=== PATIENT | male | born 1955 | race Caucasian/White ===

== ENCOUNTER 2016-09-18 17:17 | Inpatient (IN) | payer OTHER ==
--- NOTE | ~2016-09-18 | HP ---
Unit #: [id number] #: [id number] Patient: SUNI GIORDANO [id number] [place] [address] [id number] I MR#: [id number] NAME: SUNI GIORDANO. ROOM: P256 Age: 61 Sex: M Admission Date: 09/18/2016 : 1955 Attending Physician: Luis Bernabe M.D. Admitting Physician: Luis Bernabe M.D. Primary Care Physician: Generic Doctor Not In System HISTORY AND PHYSICAL HISTORY OF PRESENT ILLNESS Suni is a 61-year-old male admitted on 09/18/2016, to [address] [place] [address] for detox from alcohol. He recently had a relapse that has been affecting his life. PAST MEDICAL HISTORY Obesity, asthma and seasonal allergies. PAST SURGICAL HISTORY None. SOCIAL HISTORY Smokes less than a pack of cigarettes daily. Binge use of alcohol. No illegal drug use. He is currently single and living in a senior care house. FAMILY HISTORY Noncontributory. REVIEW OF SYSTEMS CONSTITUTIONAL: No fever or chills. HEENT: Denies any sore throat, ear pain or runny nose. CARDIOVASCULAR: Denies chest pain, irregular heart rhythm or palpitations. CHEST: Denies shortness of breath or cough. No hemoptysis. GASTROINTESTINAL: Denies nausea, vomiting, diarrhea or chronic constipation. ENDOCRINE: Denies history of increased thirst or urination. No recent significant weight loss or gain. GENITOURINARY: Denies dysuria, frequency, or hematuria. SKIN: Denies any rashes. HEMATOLOGIC: Denies history of increased bleeding or bruising. MUSCULOSKELETAL: Denies any hot, swollen joints. No generalized muscle pain. NEUROLOGIC: Denies problems with vision or speech. No frequent, severe headaches. No numbness, tingling or weakness in any extremities. Denies loss of bladder or bowel control. CURRENT MEDICATIONS Claritin. ALLERIGES No known drug allergies. PHYSICAL EXAMINATION Unit #: [id number] #: [id number] Patient: SUNI GIORDANO GENERAL: Alert and oriented in no acute distress. VITAL SIGNS: Blood pressure 154/93, heart rate 97, temperature 98.2, respirations 20. HEIGHT: 6 feet 0. WEIGHT: 257 pounds. SKIN: Warm and dry without rash or lesion. HEENT: Normocephalic. TMs not viewed. Oral and nasal passages clear. Conjunctivae clear. PERRLA. EOMs intact. NECK: Supple without lymphadenopathy or thyromegaly. HEART: Regular rate and rhythm without murmur. LUNGS: Clear. ABDOMEN: Soft, nontender, without masses or hepatosplenomegaly. : Not done. EXTREMITIES: No evidence of cyanosis, clubbing or edema. Moves all without focal deficit. NEUROLOGICAL: Grossly within normal limits. Cranial Nerves: II: Visual starr are intact. III, IV AND : Extraocular movements are intact. Pupils are equal, round and reactive to light. V: Facial sensation is grossly normal. VII: Facial movements and expression are normal. VIII: Auditory acuity grossly intact. IX, X: Uvula is midline. Phonation is normal. XI: Patient shrugs shoulders and turns head normally. XII: Tongue protrudes in the midline. Sensory and Motor Function: Sensory and motor sensation is grossly normal. Motor: moves all extremities well. Coordination: Gait is normal. Deep Tendon Reflexes: Intact. MEDICAL ASSESSMENT AND PLAN 1. Psychiatric admission 2. Obesity 3. Seasonal allergies 4. Asthma RECOMMENDATIONS 1. Psychiatric, per psychiatrist. 2. Medical, no contraindications to participating in facility's activities. MEDICAL PROGNOSIS Good. MEDICAL CONDITION Stable. Dictated by... Fawad Bolden/elmira TD: 09/19/2016 15:43 JOB #: [id number] Unit #: [id number] #: [id number] Patient: SUNI GIORDANO HISTORY AND PHYSICAL Page 1 of 1 X IRINA SANCHEZ APRN HISTORY AND PHYSICAL
--- NOTE | ~2016-09-18 | PA ---
Unit #: [id number] #: [id number] Patient: SUNI CHEN [id number] [facility] [address] [place] [address] [id number] I MR#: [id number] NAME: SUNI CHEN. ROOM: P256 Age: 61 Sex: M Admission Date: 09/18/2016 : 1955 Date of Assessment: Attending Physician: Luis Bernabe M.D. Admitting Physician: Luis Bernabe M.D. PSYCHIATRIC ASSESSMENT INFORMANT The patient reliability, fair; chart reliability, good. CHIEF COMPLAINT Detox. HISTORY OF PRESENT ILLNESS Mr. Suni Chen is a 61-year-old male, seen on 2-O[facility]ys with the above-mentioned complaint. The patient was a resident of [facility] in 2012. The patient presented for alcohol detox. The patient reports, the last time of sobriety approximately 5 weeks ago. The patient denied any suicidal or homicidal ideation. Denied any psychotic symptom. Reported history of alcohol use, sobriety almost 4 years. The patient reported unaware of the triggers. The patient reported drinking a fifth of 100 proof alcohol per day. The patient believes that he will if he does not start drinking. The patient needing help. The patient has no history of any medical condition, no history of any other substance abuse and reported tobacco, age of onset 17; alcohol, age of onset 20, sobriety 3-1/2 years, last period of sobriety was in 07/2016. The patient reported history of blackouts. No history of any HIV, hepatitis, or IV drug use. History of withdrawal symptoms. The patient reported poor concentration, poor appetite, nervousness, headache, abdominal cramping, tremors, needing inpatient admission at this time for psychiatric stabilization. PAST PSYCHIATRIC HISTORY Unremarkable for any history of previous treatment. FAMILY HISTORY AND SOCIAL HISTORY Poor support system. No history of any abuse. MEDICAL HISTORY Unremarkable. MEDICATION HISTORY None. ALLERGIES No known drug allergies. SUBSTANCE ABUSE HISTORY Please see above. Unit #: [id number] #: [id number] Patient: SUNI CHEN REVIEW OF SYSTEMS HEENT: Eyes, clear. Ears, nose, mouth, and throat; clear. CARDIOVASCULAR: Unremarkable. RESPIRATORY: Unremarkable. GI: Unremarkable. : Unremarkable. SKIN: Unremarkable. LYMPH NODE: Unremarkable. NEUROLOGIC: Unremarkable. ENDOCRINE: Unremarkable. HEMATOLOGIC: Unremarkable. ALLERGIC/IMMUNOLOGIC: Unremarkable. MUSCULOSKELETAL: Muscle strength and tone, no atrophy or abnormal movement. Gait normal. MENTAL STATUS EXAMINATION CONSTITUTIONAL: Measurement of vital signs; temperature is 98.2, pulse 97, respirations 20, blood pressure 154/93, height 6 feet, and weight 257 pounds. GENERAL APPEARANCE: The patient dressed casually. The patient did not show any facial deformity. MUSCULOSKELETAL: Please see above. PSYCHIATRIC EXAMINATION Description of speech; regular rate, normal volume, normal articulation, coherent. Description of thought process, goal directed. Description of association, intact. Description of abnormal psychotic thinking; the patient denied any thoughts of harming self or others, but guarded. Denied any suicidal or homicidal ideation, substance abuse. Description of the patient's judgment, concerning everyday activity, poor. Social situation, poor. Concerning psychiatric condition, poor. Complete mental status examination; oriented in time, place, and person. Recent and remote memory, fair. Attention span and concentration, fair. Language, able to name object and repeat phrases. Fund of knowledge, aware of current event, passive vocabulary intact. Mood and affect, sad and dysphoric. Insight and judgment, fair to poor. ASSETS AND LIABILITIES Assets; the patient is articulate and able to take care of his ADL. Liability; history of substance abuse. ADMITTING DIAGNOSES Psychiatric: Alcohol use disorder, severe, F10.20; mood disorder, not otherwise specified, F32.9. Secondary diagnosis: Deferred. Medical diagnosis: None. Stressors: Psychosocial stressors. PSYCHIATRIC PLAN AND TREATMENT GOAL AND DISCHARGE PLAN 1. Advised to admit the patient on the inpatient unit. Provide safe, supportive, and structured environment. 2. Ordered labs; CBC, CMP, UA, and UDS. 3. Precaution for detox protocol and detox monitoring. If needed, consider further adjustment of medication. The patient to attend all the Unit #: [id number] #: [id number] Patient: SUNI CHEN programing on the inpatient unit with group therapy, individual therapy. 4. Treatment goal; to attain euthymic mood, gain insight into his problem, and learn coping skills. 5. Discharge plan; plan to stabilize the patient and consider followup in outpatient program. ESTIMATED LENGTH OF STAY 3 to 5 days. Dictated by... Miriam Ludwig/nemo TD: 09/19/2016 11:24 JOB #: [id number] PSYCHIATRIC ASSESSMENT Page 1 of 1 X Luis Bernabe MD PSYCHIATRIC ASSESSMENT
--- NOTE | ~2016-09-18 | CO ---
Unit #: [id number] #: [id number] Patient: SUNI GIORDANO [id number] [facility] [address] [place] [address] [id number] I MR#: [id number] NAME: SUNI GIORDANO. ROOM: P256 Age: 61 Sex: M Admission Date: 09/18/2016 : 1955 Attending Physician: Luis Bernabe M.D. Primary Care Physician: Generic Doctor Not In System Consultation Date: 09/19/2016 CONSULTATION REPORT HISTORY OF PRESENT ILLNESS Suni has fallen since he has been here and he reports that he has falls often. The staff and Dr. Bernabe has some concerns about his mental status. He appears to occasionally have acute mental status changes he may need to detox in a more acute medical facility. During the evaluation, he was able to answer questions appropriately. He reports that he does fall occasionally and he is not sure what causes to fall. He does have some pain in his knees. He is aware of where he is and why he is here and can discussion his medical history without any problems. PHYSICAL EXAMINATION CARDIAC: Regular rate and rhythm. No murmurs, gallops, or rubs. RESPIRATORY: Clear to auscultation bilaterally. GENERAL: Alert and oriented, no acute distress. ASSESSMENT AND PLAN Mental status changes. At this time, Suni does not appear to have any mental status changes and therefore . If he does have any repeat episodes of falling or acute changes in mental status, please return to the ER. Also please keep him on a one-to-one and ensure that he remains in the wheelchair. Dictated by... Fawad Bolden/nemo TD: 10/01/2016 01:05 JOB #: [id number] CONSULTATION REPORT Page 1 of 1 X IRINA SANCHEZ APRN CONSULTATION REPORT
--- NOTE | ~2016-09-18 | DS ---
Unit #: [id number] #: [id number] Patient: SUNI GIORDANO [id number] [facility] [address] [place] [address] [id number] I MR#: [id number] NAME: SUNI GIORDANO. ROOM: [facility] Age: 61 Sex: M Admission Date: 09/18/2016 : 1955 Discharge Date: 09/20/2016 Attending Physician: Luis Bernabe M.D. Primary Care Physician: Generic Doctor Not In System DISCHARGE SUMMARY REASON FOR ADMISSION Alcohol withdrawal. DIAGNOSTIC STUDIES LABORATORY RESULTS: Remarkable for glucose 114. Urine drug screen positive for benzodiazepine. HOSPITAL COURSE The patient was admitted to inpatient unit on 2-Odalys. The patient was very unsteady, shaky, nervous, anxious, having bad cough. The patient was subsequently evaluated and decided to send the patient to [facility] for psychiatric stabilization. The patient's vitals were temperature 98.2, pulse 98, respirations 16, and blood pressure 184/92. The patient was subsequently accepted for further inpatient care and discharged. DISCHARGE MEDICATIONS None. DISCHARGE DIAGNOSES Psychiatric: 1. Alcohol use disorder, severe, F10.20. 2. Mood disorder, not otherwise specified, F32.9. Secondary diagnosis: Deferred. Medical diagnosis: Please refer to H and P. Stressors: Psychosocial stressors. DISCHARGE INSTRUCTIONS The patient is to follow up at [facility] for medical stabilization. CONDITION ON DISCHARGE The patient was restless and anxious at the time of discharge. PROGNOSIS Guarded. DIET AND ACTIVITY As tolerated. Unit #: [id number] #: [id number] Patient: SUNI GIORDANO Dictated by... Miriam Ludwig/nemo TD: 09/20/2016 17:48 JOB #: [id number] DISCHARGE SUMMARY Page 1 of 1 X Luis Bernabe MD X DISCHARGE SUMMARY
[2016-09-20] MEDS ORDERED: THIAMINE HCL100 M2 IM (04:50)
[2016-09-20] MEDS ORDERED: THIAMINE HCL100 M1 PO (04:50)
[2016-09-20] MEDS ORDERED: THIAMINE H100 MG/1 M IM (04:51)
[2016-09-20] MEDS ORDERED: FOLIC ACID1 MG PO (04:51)
[2016-09-20] MEDS ORDERED: [UNRECOGNIZED DRUG - OTHER] PO (04:52)
[2016-09-20] MEDS ORDERED: CENTRUM PO (05:10)
[2016-09-20] MEDS ORDERED: CLARITIN10 M3 PO (05:11)
[2016-09-20] MEDS ORDERED: BENTYL10 MG PO (05:12)
[2016-09-20] MEDS ORDERED: IMODIUM A-D2 M2 PO (05:12)
[2016-09-20] MEDS ORDERED: ZOFRAN ODT4 M1 PO (05:13)
[2016-09-20] MEDS ORDERED: PHENERGAN25 M1 PO (05:13)
[2016-09-20] MEDS ORDERED: PHENERGAN25 MG/1 M1 IM (05:14)
[2016-09-20] MEDS ORDERED: PHENERGAN12.5 M2 PR (05:15)
[2016-09-20] MEDS ORDERED: DIAZEPAM PR (05:16)
[2016-09-20] MEDS ORDERED: ATIVAN2 M1 PO (05:17)
[2016-09-20] MEDS ORDERED: [UNRECOGNIZED DRUG - OTHER] PO (05:18)
[2016-09-20] MEDS ORDERED: ACETAMINOPHEN PO (05:18)
[2016-09-20] MEDS ORDERED: DESYREL150 M1 PO (05:19)
[2016-09-20] MEDS ORDERED: MILK OF MAGNESIA PO (05:19)
== END 2016-09-20 08:10 | DRG 897 ==
LOC: P2L 17:17 → POF 09-19 00:30 → P2L 09-19 00:32
PROC: HZ2ZZZZ Detoxification Services for Substance Abuse Treatment (ICD-10-PCS; principal; 2016-09-18)
DX: F10.20 Alcohol dependence, uncomplicated (principal); F39 Unspecified mood [affective] disorder; E66.9 Obesity, unspecified; J45.909 Unspecified asthma, uncomplicated; F17.210 Nicotine dependence, cigarettes, uncomplicated; Z68.34 Body mass index [BMI] 34.0-34.9, adult; Y90.0 Blood alcohol level of less than 20 mg/100 ml
CPT/HCPCS: 82947

== ENCOUNTER 2016-09-20 01:27 | Inpatient (IN) | payer OTHER ==
--- NOTE | ~2016-09-20 | CR72 ---
[facility] A Service of [facility] & [facility] RADIOLOGY TEXT RESULTS PATIENT: SUNI GIORDANO LOCATION: [address]15 : [birth year] UNIT #: [id number] AGE: [address]: PATRICE BLOOM MD SEX: M ORDER DR: [id number] [facility] [address]. [place], [place] [address] [id number] I MR#: [id number] Acc #: [id number] NAME: SUNI GIORDANO. : 1955 SEX: M STUDY DATE/TIME: 09/21/2016 10:03 UNIT: [facility] ROOM: [facility] STUDY DESCRIPTION: CR Chest Single View Portable Attending Physician: Patrice Bloom M.D. Ordering Physician: Ed Doctor [id number] [facility] Primary Care Physician: No Primary Care Physician MEDICAL IMAGING REPORT This report is preliminary unless electronic signature is present EXAM Single view chest Single AP view of the chest compared to 09/21/2016. Enteric tube has been repositioned. The tube is now below the diaphragm and in the stomach. Lungs are clear. No pneumothorax. IMPRESSION No pneumothorax status post removal and replacement of the enteric tube. Dictated by... Les Artis M.D. THIS IS AN ELECTRONICALLY VERIFIED REPORT Les Artis M.D. at 09/21/2016 1:59 PM RICHA/naye TD: 09/21/2016 12:49 JOB #: [id number] MEDICAL IMAGING REPORT Page 1 of 1 COPY
--- NOTE | ~2016-09-20 | CR72 ---
[facility] A Service of [facility] & [facility] RADIOLOGY TEXT RESULTS PATIENT: SUNI GIORDANO LOCATION: [facility] : 59 UNIT #: [id number] AGE: [address]: PATRICE CARTER MD SEX: M ORDER DR: [id number] [facility] [address] [place], [place] [address] [id number] I MR#: [id number] Acc #: [id number] NAME: SUNI GIORDANO. : 1955 SEX: M STUDY DATE/TIME: 09/20/2016 UNIT: [facility] ROOM: 88508 STUDY DESCRIPTION: CR Chest Single View Portable Attending Physician: Patrice Carter M.D. Ordering Physician: Petty Callahan A.P.R.N. Primary Care Physician: Primary Care Physician No MEDICAL IMAGING REPORT This report is preliminary unless electronic signature is present EXAM Portable chest 09/20 at 01:50 hours INDICATIONS Shortness of air and increasing confusion today. History of hypertension. FINDINGS A single AP portable view of the chest shows both lungs to be clear. The heart is normal in size. The mediastinal contour is normal. No significant bone abnormalities are seen. IMPRESSION Normal portable chest. Dictated by... Vinayak Chauhan Jr., M.D. THIS IS AN ELECTRONICALLY VERIFIED REPORT Vinayak Chauhan Jr., M.D. at 09/20/2016 11:15 AM CHELA/mitchell TD: 09/20/2016 08:35 JOB #: [id number] MEDICAL IMAGING REPORT Page 1 of 1 COPY
--- NOTE | ~2016-09-20 | CO ---
Unit #: [id number] #: [id number] Patient: SUNI CHEN [id number] [facility] [address] [place], [place] [address] [id number] I MR#: [id number] NAME: SUNI CHEN ROOM: 576 Age: 61 Sex: M Admission Date: 09/20/2016 : 1955 Attending Physician: Britt Taylor M.D. Consultation Date: 09/28/2016 CONSULTATION REPORT REASON FOR CONSULTATION Alcohol abuse, anxiety, altered mental status. HISTORY OF PRESENT ILLNESS Mr. Suni Chen is a 61-year-old male, seen in room 325, bed 1, on 09/28/2016 at [facility]. The patient reports that he was admitted due to alcohol detox. Initially, he went to [facility]. Subsequently, he was brought here. The patient was treated in ICU. The patient needed a Precedex drip to control withdrawal symptoms. The patient reports history of drinking alcohol. The patient reported a fifth of 100 proof a day, drinking on a daily basis. The patient denied any use of any other drugs. The patient currently denied any withdrawal symptoms. Denied any use of any drugs. The patient denied any suicidal or homicidal ideation. Denied any psychotic symptom at this time. The patient was confused initially, but feeling much better. The patient is scheduled to go for a cardiac cath tomorrow, somewhat anxious about that. PAST PSYCHIATRIC HISTORY Remarkable for history of alcohol abuse. MEDICAL HISTORY Remarkable for history of COPD and alcohol abuse. MEDICATION HISTORY Please refer to MAR. FAMILY HISTORY AND SOCIAL HISTORY The patient has a poor support system. No history of any abuse. History of alcohol abuse as mentioned above. REVIEW OF SYSTEMS Complete review of systems is remarkable for anxiety. MENTAL STATUS EXAMINATION General appearance, the patient moderately obese, dressed casually in hospital attire. Attention span and concentration, fair. Speech, regular rate and coherent. Oriented in time, place, and person. Mood and affect, labile. Thought process, coherent. Thought content, the patient denied any thoughts of harming self or others or any psychotic symptom. Recent and remote memory, fair. Language, able to name object and repeat phrases. Fund of knowledge, fair. Insight and judgment, fair to slightly impaired. DIAGNOSES Unit #: [id number] #: [id number] Patient: SUNI CHEN Psychiatric: Alcohol use disorder, severe, F10.20; mood disorder, not otherwise specified, F32.9. Secondary diagnosis: Deferred. Medical diagnosis: Please refer to H and P. Stressors: Psychosocial stressors. ASSESSMENT/PLAN 1. Supportive psychotherapy and psychoeducation provided to the patient. 2. Educated about benefits and side effects of medication and course and prognosis of illness. 3. Advised no medication change. Advised the [facility] after the patient is medically cleared. Please feel free to call if any questions, telephone #[phone]. Dictated by... Miriam Ludwig/nemo TD: 09/30/2016 04:15 JOB #: [id number] CONSULTATION REPORT Page 1 of 1 X Luis Bernabe MD X CONSULTATION REPORT
--- NOTE | ~2016-09-20 | EKG ---
PATIENT: SUNI GIORDANO UNIT #: [id number] Ventricular Rate: 57 BPM Atrial Rate: 57 BPM P-R Interval: 150 ms QRS Duration: 100 ms Q-T Interval: 464 ms QTC Calculation(Bezet): 451 ms P [place]: 28 degrees Calculated R [place]: -52 degrees Calculated T [place]: -131 degrees Diagnosis Line: Poor data quality, interpretation may be Diagnosis Line: adversely affected Diagnosis Line: Sinus bradycardia Diagnosis Line: Left axis deviation Diagnosis Line: Low voltage QRS Diagnosis Line: Inferior infarct , age undetermined Diagnosis Line: ST and T wave abnormality, consider anterolateral Diagnosis Line: ischemia Diagnosis Line: Abnormal ECG Diagnosis Line: Diagnosis Line: Confirmed by JESS KATZ MD ([id number]) on 09/30/2016 Diagnosis Line: 5:04:23 AM INTERPRETING MD: GIANNA BALLESTEROS
--- NOTE | ~2016-09-20 | HP ---
Unit #: [id number] #: [id number] Patient: SUNI GIORDANO [id number]. [place], [place] [address] [id number] I MR#: [id number] NAME: SUNI GIORDANO. ROOM: [facility] Age: 61 Sex: M Admission Date: 09/20/2016 : 1955 Attending Physician: Eliud Carter M.D. HISTORY AND PHYSICAL CHIEF COMPLAINT Altered mental status. HISTORY OF PRESENT ILLNESS The patient is a 61-year-old male brought from [facility] for altered mental status. The patient was admitted to the [facility] on 2-Odalys for detox from alcohol on September 18. The patient was found to be alert only to self and unsteady on feet and sent from [facility]. The patient was found to be in DTs in the emergency room in the hospital. The patient received Ativan, Geodon, and ketamine in the emergency room for the detox. The patient is being admitted for the above reasons. The patient is unable to provide any history, and the patient is admitted to the ICU for close monitoring. Patient is on Precedex at 1.2 mcg/kg/hour. PAST MEDICAL HISTORY 1. Obesity. 2. Asthma. 3. Seasonal allergies. PAST SURGICAL HISTORY None. SOCIAL HISTORY Patient smokes less than a pack of cigarettes daily. Binge use of alcohol. No illegal drug use. He is currently single and living in a [facility]. FAMILY HISTORY Unable to obtain. HOME MEDICATIONS Claritin. ALLERGIES No known drug allergies. REVIEW OF SYSTEMS Unable to obtain. PHYSICAL EXAMINATION GENERAL: Patient is lying in bed not in acute distress. VITAL SIGNS: Temperature is 98.2, pulse 100, respirations 24, saturating 100%, and blood pressure is 221/97 then down to 184/92. HEENT: Head atraumatic, normocephalic. Pupils equal, round, and reactive Unit #: [id number] #: [id number] Patient: SUNI GIORDANO to light and accommodation. Extraocular movements are intact. Dry mucous membranes. NECK: Supple. LUNGS: Decreased air entry. HEART: Regular rate and rhythm, tachycardic. ABDOMEN: Soft. Positive bowel sounds. EXTREMITIES: No evidence of cyanosis, clubbing, or edema. NEUROLOGIC: Patient is sedated with intermittent movements and no gross focal motor deficits. DIAGNOSTIC STUDIES LABORATORY: Blood gas is 7.4, PCO2 of 35, PO2 of 128, bicarb 25, and saturation 97.6. Glucose 114, BUN 15, creatinine 1.3, sodium 137, potassium 2.9, chloride 98, bicarb 27, calcium 9.4, AST 138, and ALT is 72. Amylase 11. Ammonia is 12. INR is 1. WBC 5.3, hemoglobin 15.2, hematocrit 45, and platelets 103,000. Urine toxicology is positive for benzodiazepines. Urinalysis shows trace leukocyte esterase and 10-25 urine hyaline crystals. IMAGING: CT of the head shows normal noncontrast head CT. Chest x-ray shows normal portable chest. ASSESSMENT 1. Delirium tremens secondary to alcohol withdrawal. 2. Alcohol abuse. 3. Hypokalemia. PLAN Patient is admitted to the intensive care unit for close monitoring. Patient will be on CIWA protocol. Continue with critical care consult with Dr. Nicole and psychiatry consult for alcohol dependence. Replace potassium per protocol. Continue CIWA protocol and DVT prophylaxis with Lovenox. Repeat the labs again for potassium. Further recommendations will follow as more lab results are available. Dictated by Miriam Menard TD: 09/20/2016 15:28 JOB #: [id number] HISTORY AND PHYSICAL Page 1 of 1 X X HISTORY AND PHYSICAL
--- NOTE | ~2016-09-20 | OR ---
Unit #: [id number] #: [id number] Patient: SUNI GIORDANO [id number] [address] [place], [place] [address] [id number] I MR#: [id number] NAME: SUNI GIORDANO ROOM: [facility] Date of Procedure: 09/22/2016 Admission Date: 09/20/2016 Surgeon: Ana Carter M.D. : 1955 Attending Physician: Eliud Carter M.D. Primary Care Physician: Dominga Primary Care Physician PROCEDURE OPERATIVE NOTE PROCEDURE Right internal jugular venous catheter placement with ultrasound guidance. INDICATION FOR PROCEDURE Respiratory failure, lack of IV access. PRE-OP DIAGNOSIS Alcohol withdrawal. PERFORMING PHYSICIAN Ana Carter M.D. STOCK PARTS INSPECTOR RONEY Leroy. DESCRIPTION OF THE PROCEDURE Informed consent was not obtained, as the patient had no family to reach. The patient was prepped and positioned in appropriate way. Then, chlorhexidine was applied to the right IJ. Then, a needle was inserted until blood flow was obtained under ultrasound guidance. Then, a guidewire was inserted, and the needle was removed. Then, scalpel was used to create a tract for the dilator. Then, central line was inserted over the guidewire, and the guidewire was removed. The central line was sutured in placed with no complications. The patient tolerated his procedure well. Dictated by... Ana Carter M.D. EA/ce TD: 09/23/2016 07:40 JOB #: [id number] Unit #: [id number] #: [id number] Patient: SUNI GIORDANO PROCEDURE OPERATIVE NOTE Page 1 of 1 X ANA MOREAU MD PROCEDURE OPERATIVE NOTE
--- NOTE | ~2016-09-20 | CR7 ---
[facility] A Service of [facility] & [facility] RADIOLOGY TEXT RESULTS PATIENT: SUNI GIORDANO LOCATION: [address] : [birth year] UNIT #: [id number] AGE: [address]: PATRICE CARTER MD SEX: M ORDER DR: [id number] [facility] [address] [facility]. [place], [place] [address] [id number] I MR#: [id number] Acc #: [id number] NAME: SUNI GIORDANO. : 1955 SEX: M STUDY DATE/TIME: 09/21/2016 18:21 UNIT: [facility] ROOM: [facility] STUDY DESCRIPTION: CR Abdomen Single AP View Attending Physician: Patrice Carter M.D. Ordering Physician: Luis Bernabe M.D. Primary Care Physician: Primary Care Physician No MEDICAL IMAGING REPORT This report is preliminary unless electronic signature is present EXAM AP view of the abdomen. COMPARISON September 21, 2016 at 10:02 a.m. and at 9:49 a.m. INDICATION 61-year-old male post feeding tube placement today. Abdominal distension and bloating as well as unspecified abdominal pain. FINDINGS Weighted feeding tube tip is within the gastric fundus. There is mild gaseous distension of the stomach. No abnormally dilated bowel loops in the upper abdomen. IMPRESSION Weighted feeding tube tip within the gastric fundus. Dictated by... Yan Romano M.D. THIS IS AN ELECTRONICALLY VERIFIED REPORT Yan Romano M.D. at 09/22/2016 11:25 AM Onesimo TD: 09/22/2016 05:26 JOB #: [id number] MEDICAL IMAGING REPORT Page 1 of 1 COPY
--- NOTE | ~2016-09-20 | CR72 ---
[facility] A Service of [facility] & [facility] RADIOLOGY TEXT RESULTS PATIENT: SUNI GIORDANO LOCATION: [address]07[address]15 : [birth year] UNIT #: [id number] AGE: [address]: PATRICE CARTER MD SEX: M ORDER DR: [id number] [facility] [address] [facility] [place] [facility]. [place], [place] [address] [id number] I MR#: [id number] Acc #: [id number] NAME: SUNI GIORDANO. : 1955 SEX: M STUDY DATE/TIME: 09/21/2016 UNIT: [facility] ROOM: [facility] STUDY DESCRIPTION: CR Chest Single View Portable Attending Physician: Patrice Carter M.D. Ordering Physician: Adarsh Nicole M.D. Primary Care Physician: Primary Care Physician No MEDICAL IMAGING REPORT This report is preliminary unless electronic signature is present EXAM Portable chest 09/11/2010 at 04:58 hours INDICATIONS Confusion, shortness of air and cough for 1 day. Alcohol detoxification. FINDINGS AP portable chest is compared with 09/20/2016. Borderline cardiac enlargement. The lungs are emphysematous but overall clear. No pneumothorax. IMPRESSION Borderline cardiomegaly. No active disease. Dictated by... Vinayak Chauhan Jr., M.D. THIS IS AN ELECTRONICALLY VERIFIED REPORT Vinayak Chauhan Jr., M.D. at 09/21/2016 10:40 PM BRODIEK/mitchell TD: 09/21/2016 07:32 JOB #: [id number] MEDICAL IMAGING REPORT Page 1 of 1 COPY
--- NOTE | ~2016-09-20 | OR ---
Unit #: [id number] #: [id number] Patient: SUNI GIORDANO [id number] [address] [place], [place] [address] [id number] I MR#: [id number] NAME: SUNI GIORDANO ROOM: [facility] Date of Procedure: 09/22/2016 Admission Date: 09/20/2016 Surgeon: Ana Carter M.D. : 1955 Attending Physician: Eliud Carter M.D. Primary Care Physician: No Primary Care Physician PROCEDURE OPERATIVE NOTE PROCEDURE PERFORMED GlideScope intubation. PRE-OP DIAGNOSIS Respiratory failure. PREMEDICATIONS 1. Etomidate 20 mg IV x1. 2. Succinylcholine 200 mg IV x1. DESCRIPTION OF THE PROCEDURE Informed consent was waived, as the patient was declining, and there was no family to reach. The patient was prepped and positioned in a proper way and then was premedicated. Then, with the GlideScope assistance, an 8 cm ET tube was inserted, passed the vocal cords with no complications. Good bilateral breath sounds were auscultated. Then, good discoloration in the CO2 monitor was noted. STAT chest x-ray confirmed placement with no immediate complications. Dictated by... Ana Carter M.D. EA/ce TD: 09/23/2016 07:27 JOB #: [id number] PROCEDURE OPERATIVE NOTE Page 1 of 1 X ANA MOREAU MD X PROCEDURE OPERATIVE NOTE
--- NOTE | ~2016-09-20 | CO ---
Unit #: [id number] #: [id number] Patient: SUNI CHEN [id number] [address] [place], [place] [address] [id number] I MR#: [id number] NAME: SUNI CHEN. ROOM: 325 Age: 61 Sex: M Admission Date: 09/20/2016 : 1955 Attending Physician: Eliud Carter M.D. Consultation Date: 09/26/2016 CONSULTATION REPORT REASON FOR CONSULTATION Nonsustained ventricular tachycardia. HISTORY OF PRESENT ILLNESS This is a 61-year-old white male with history of COPD, obesity, nicotine and alcohol abuse, who was sent here from [facility] and DTs secondary to alcohol withdrawal. According to the patient, he has been drinking heavily in the last 3 to 4 months of about half a gallon of vodka a day. He says he has had alcohol issues for 40 years. He smokes about a pack a day and has been smoking most of his adult life. He was started on withdrawal protocol. He has also had some acute kidney injury with his creatinine as high as 2.0. His potassium and magnesium have been low and that have been supplemented over this hospitalization. During the night, he had 2 episodes of nonsustained ventricular tachycardia with around 18-beat run and a 20-beat run. The patient said he may have felt a little palpitation, but denies any chest pain, pain in his neck; bilateral jaws, shoulders, arms, or elbow. He said at home if he drinks energy drink he may feel some palpitations, but never had any real chest pain. He denies any shortness of breath. Denies any proximal nocturnal dyspnea or orthopnea. No dizziness, presyncope, or syncope. With the nonsustained V-tach. Cardiology will be consulted to assist with evaluation and management. PAST MEDICAL HISTORY Asthma, COPD, alcohol abuse drinks about half a gallon of vodka a day, nicotine abuse smokes a pack of cigarettes a day, obesity weight 265 pounds with a BMI of 34, stress test in 2006 in [place], [place] told it was normal. Lives in a custodial house. He denies hypertension, hyperlipidemia, or diabetes mellitus. PAST SURGICAL HISTORY Finger surgery. HOME MEDICATIONS He takes Claritin. ALLERGIES no known drug allergies. SOCIAL HISTORY The patient lives in a custodial house. 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 He smokes a pack of cigarettes a day. He has been smoking most of his adult life. He has been drinking most of his adult life, but drinking more heavily in the last 3 months. He says he has been drinking up to Unit #: [id number] #: [id number] Patient: SUNI CHEN half a gallon of vodka a day. FAMILY HISTORY His parents, both had complications from cancer and from cancer. His siblings are in generally well health. REVIEW OF SYSTEMS See details in HPI. PHYSICAL EXAMINATION GENERAL: Mr. Chen is a 61-year-old white male, in no acute respiratory distress. He is awake, alert, and answers questions appropriately. No DTs witnessed on this exam. VITAL SIGNS: Blood pressure is 144/72, heart rate is 78, respirations 18, temperature is 99.0, O2 saturations 97% on room air. NECK: Trachea midline. No thyromegaly or lymphadenopathy. Normal carotid upstrokes. No jugular venous distention. HEART: S1, S2. Regular rate and rhythm. No clicks, murmurs, or rubs. LUNGS: Very diminished. ABDOMEN: Obese, soft, slightly tender with palpating. EXTREMITIES: Pedal pulses are palpable. No pedal edema. DIAGNOSTIC STUDIES LABORATORY RESULTS: Glucose is 113, BUN 17, creatinine 1.3, eGFR is 59.7, sodium 146, potassium is 3.4, chloride 110, CO2 of 27. Calcium is 8.8, phosphorus is 2.4, magnesium is 2.4, total protein 6.6, albumin 2.8, bilirubin total 1.4, AST 57, ALT 50, alkaline phosphatase is 37. BNP is 381. WBCs is 5.1, hemoglobin 12.1, hematocrit 36.7, platelets is 169. INR is 1.0. CK on 09/25/2016 was 1036, today 625. Urine tox screen, positive for benzodiazepines. IMAGING STUDIES: His chest x-ray on 09/24/2016 shows mild atelectasis in the bases and small volume of left pleural fluid. CARDIOVASCULAR STUDIES: EKG on admission shows normal sinus rhythm with ventricular rate of 86 beats per minute, left axis deviation, pulmonary disease pattern, inferior infarct, age indeterminate, ST-T wave abnormalities in anterolateral leads. IMPRESSION 1. Delirium tremens secondary to alcohol withdrawal. 2. Hypokalemia. 3. Hypomagnesium. 4. Alcohol abuse. 5. Nicotine abuse. 6. Nonsustained ventricular tachycardia. 7. Obesity. PLAN 1. The patient's ventricular tachycardia most likely could be secondary to hypokalemia and hypomagnesium. The patient is on the Mag and potassium protocol, and have been supplemented this morning; however, with his alcohol use versus coronary artery disease. I will start the patient on beta-beatriz, metoprolol 25 mg p.o. b.i.d. with parameters. 2. We will obtain 2D echo to evaluate LV function and valves and check for alcoholic cardiomyopathy. 3. We will check a TSH, fasting lipid profile. On exam, there are no signs or symptoms of acute congestive heart failure or unstable angina Unit #: [id number] #: [id number] Patient: SUNI CHEN with his nonsustained ventricular tachycardia. We will need an ischemic heart disease workup likely a stress test. We will monitor his cardiac enzymes that are so far negative. His EKG does show old Q waves in the inferior leads, so we will most likely need to do is some type of stress test while he is here before he goes back to [facility]. 4. Encourage the patient to completely quit smoking and quit alcohol abuse. The patient is going back to [facility] for the rehab and we will give the patient smoking cessation information. Thank you very much for allowing us to assist in the care. Dictated by... Fawad Ortiz/nemo TD: 09/26/2016 23:55 JOB #: [id number] CONSULTATION REPORT Page 1 of 1 X Ashtyn Martin APRN X CONSULTATION REPORT
--- NOTE | ~2016-09-20 | DS ---
Unit #: [id number] #: [id number] Patient: SUNI GIORDANO [id number] [address] [address] [id number] I MR#: [id number] NAME: SUNI GIORDANO. ROOM: 576 Age: 61 Sex: M Admission Date: 09/20/2016 : 1955 Discharge Date: Attending Physician: Britt Taylor M.D. Primary Care Physician: No Primary Care Physician DISCHARGE SUMMARY DISCHARGE DIAGNOSES 1. Acute hypoxic respiratory failure. 2. Aspiration pneumonia. 3. Acute kidney injury. 4. Abnormal stress test, status post cardiac catheterization with multivessel disease, status post percutaneous coronary intervention x2. He needs a third stent in three months' time. 5. Occult blood positive: Patient seen by gastroenterology. Patient does not need any acute intervention currently. 6. Hypernatremia. 7. Hematuria, most likely secondary to Foster catheter. 8. History of alcohol abuse. 9. Community-acquired pneumonia. 10. Ventricular tachycardia on metoprolol. 11. Hypertension, uncontrolled. 12. Delirium tremens. 13. Hypophosphatemia. 14. Hypokalemia. 15. Hypocalcemia. 16. Mild protein malnutrition. CONSULTATIONS 1. Dr. Rowe. 2. Dr. Mendes. 3. Dr. Nicole. PROCEDURE 1. Patient had intubation and right internal jugular venous catheter placement. 2. Patient had cardiac cath which shows multivessel disease, status post stent placements x2. DIAGNOSTIC STUDIES LABORATORY: Sodium 140, potassium 4.3, creatinine 1.4. LDL 133. WBC 7.4, hemoglobin 11.2, platelets 329,000. Occult blood positive. TSH 2.73. Blood cultures negative. Sputum cultures are growing Serratia marcescens and Staphylococcus aureus. IMAGING: Ultrasound of the kidneys bilateral shows no renal lesion. CAT scan of the head negative. CARDIOVASCULAR: EKG shows sinus bradycardia. Unit #: [id number] #: [id number] Patient: SUNI GIORDANO Stress test shows medium size area of stress-induced ischemia involving inferior wall of the left ventricle. ALLERGIES None. DISCHARGE MEDICATIONS 1. Claritin 10 mg p.o. daily. 2. Lipitor 80 daily. 3. Lopressor 25 p.o. b.i.d. 4. Centrum one tablet p.o. daily. 5. Clonidine 0.2 mg three times daily. 6. Aspirin 81 daily. 7. Plavix 75 daily. 8. Nitroglycerin 0.4 sublingual p.r.n. pain. 9. Folic acid 1 mg daily. 10. Thiamine 100 daily. HOSPITALIZATION COURSE A 61 year old admitted because of change in mental status. Acute hypoxic respiratory failure from pneumonia: Patient is seen by pulmonary. Patient received IV antibiotics. Currently, breathing is better off oxygen. Aspiration pneumonia: The patient received broad-spectrum antibiotics IV. His sputum cultures are growing staphylococcus and serratia. Patient completed his antibiotic course. Abnormal stress test with medium-sized ischemia. Patient had cardiac cath which shows multivessel disease. The patient had stents placed x2. Patient will follow Dr. Rowe as an outpatient for PCI of the diagonal branch in three months' time. Continue with aspirin, Lipitor, and Plavix. Acute kidney injury: Prerenal. Patient received IV fluids. Creatinine normal result. Alcohol abuse with delirium tremens: Patient is seen by Dr. Bernabe. Patient received alcohol withdrawal protocol. Currently, patient is alert and oriented x3, not in any acute delirium. Continue with thiamine and folic acid at home. DISPOSITION The patient will be discharged home. FOLLOWUP 1. Follow with family physician in one week time. 2. Follow with Dr. Rowe on December 28. 3. Patient has occult blood positive. Dr. Sotelo has been consulted. Because patient's hemoglobin is stable and no overt bleeding, no acute intervention done. Patient will have colonoscopy if needed as an outpatient. Follow with Dr. Sotelo in two weeks' time for that. Discharge time taken is 32 minutes. Unit #: [id number] #: [id number] Patient: SUNI GIORDANO Dictated by... Miriam Choudhary TD: 09/30/2016 14:45 JOB #: [id number] DISCHARGE SUMMARY Page 1 of 1 X Britt Taylor MD X DISCHARGE SUMMARY
--- NOTE | ~2016-09-20 | CR72 ---
[facility] A Service of [facility] RADIOLOGY TEXT RESULTS PATIENT: SUNI GIORDANO LOCATION: [place] [address] : [birth year] UNIT #: [id number] AGE: [address]: PATRICE BLOOM MD SEX: M ORDER DR: [id number] [facility] [address] [facility]. [place], [place] [address] [id number] I MR#: [id number] Acc #: [id number] NAME: SUNI GIORDANO. : 1955 SEX: M STUDY DATE/TIME: 09/22/2016 10:00 UNIT: [facility] ROOM: [facility] STUDY DESCRIPTION: CR Chest Single View Portable Attending Physician: Patrice Bloom M.D. Ordering Physician: Oneyda Bloom M.D. Primary Care Physician: No Primary Care Physician MEDICAL IMAGING REPORT This report is preliminary unless electronic signature is present EXAM AP portable chest. DATE 09/22/2016 at 1000. HISTORY 61-year-old male status post central line placement today. Shortness of breath. COMPARISON AP portable chest, 09/22/2016. FINDINGS Right IJ central line tip extends to the lower SVC. ET tube has been placed in satisfactory position with the tip located about 4.7 cm above the jarad. Dobbhoff tube extends below the diaphragm with tip not included in the field of view. Predominately interstitial type infiltrates are seen within both lungs with more confluent interstitial and alveolar disease in the right infrahilar and left suprahilar region. There is improved aeration within the right lower lobe with slightly worsened aeration in the left upper lobe, compared to earlier today. No visible pneumothorax. Stable cardiomegaly. IMPRESSION 1. Right IJ central line placement with the tip in the lower SVC. No visible pneumothorax. 2. ET tube tip placement 4.7 cm above the jarad. 3. Interstitial and alveolar infiltrates are present within both lungs. Correlate clinically for pneumonia or aspiration. Slight improved aeration in the right base compared to earlier today. Slightly [facility] A Service of [facility] RADIOLOGY TEXT RESULTS PATIENT: SUNI GIORDANO LOCATION: [address] : [birth year] UNIT #: [id number] AGE: [address]: PATRICE BLOOM MD SEX: M ORDER DR: worsened airspace disease in the left upper lobe compared to earlier today. 4. Stable cardiomegaly. Dictated by... Anjali Paul M.D. THIS IS AN ELECTRONICALLY VERIFIED REPORT Anjali Paul M.D. at 09/23/2016 7:03 AM ANTONIO/norman TD: 09/22/2016 12:30 JOB #: [id number] MEDICAL IMAGING REPORT Page 1 of 1 COPY
--- NOTE | ~2016-09-20 | CR72 ---
[facility] A Service of [facility] & [facility] RADIOLOGY TEXT RESULTS PATIENT: SUNI GIORDANO LOCATION: [facility] 325-01 : [birth year] UNIT #: [id number] AGE: [address]: PATRICE CARTER MD SEX: M ORDER DR: [id number] [facility] [address] [facility]. [place], [place] [address] [id number] I MR#: [id number] Acc #: [id number] NAME: SUNI GIORDANO. : 1955 SEX: M STUDY DATE/TIME: 09/24/2016 0511 UNIT: [facility] ROOM: [facility] STUDY DESCRIPTION: CR Chest Single View Portable Attending Physician: Patrice Carter M.D. Ordering Physician: Marline Gresham M.D. Primary Care Physician: No Primary Care Physician MEDICAL IMAGING REPORT This report is preliminary unless electronic signature is present EXAM Portable chest, 09/24 at 0511. INDICATION Respiratory failure. Ventilator patient. Alcohol detox. FINDINGS AP portable chest compared with 09/23/2016. ET tube and right IJ line remain in place. Cardiomegaly is stable. There is some continued mild atelectasis in the bases and there is a small volume of left pleural fluid. Lung volumes remain low. No pneumothorax. Dictated by... Vinayak Chauhan Jr., M.D. THIS IS AN ELECTRONICALLY VERIFIED REPORT Vinayak Chauhan Jr., M.D. at 09/27/2016 7:24 AM CHELA/norman TD: 09/24/2016 09:20 JOB #: [id number] MEDICAL IMAGING REPORT Page 1 of 1 COPY
--- NOTE | ~2016-09-20 | CO ---
Unit #: [id number] #: [id number] Patient: SUNI CHEN [id number] [facility]. [place], [place] [address] [id number] MR#: [id number] NAME: SUNI CHEN. ROOM: [facility] Age: 61 Sex: M Admission Date: 09/20/2016 : 1955 Attending Physician: Eliud Carter M.D. Primary Care Physician: Primary Care Physician No Consultation Date: 09/24/2016 CONSULTATION REPORT REASON FOR CONSULT Acute kidney injury. HISTORY OF PRESENT ILLNESS Mr. Chen is a 61-year-old white male, alcoholic, who was [facility] due to DTs and altered mental status. The patient was subsequently apparently aspirated and ended up on the ventilator with pneumonia. He had been getting vancomycin and Zosyn for coverage up until today when it was stopped after his creatinine continued to escalate. He had also been on some Bumex for diuresis and assistance with getting off the ventilator. He is now extubated and still little confused. He is urinating well with no hematuria. He has not received any NSAIDs or any IV contrast studies. Of note, back on the , he did have significant hypotension with blood pressure readings dipping down into the 90s on multiple occasions and that is when his creatinine seemed to start to increase. Most of the history was obtained from the chart as the patient again is a little bit confused still. PAST MEDICAL HISTORY Significant for alcoholism, obesity, asthma, and seasonal allergies. PAST SURGICAL HISTORY None. CURRENT MEDICATIONS He is on Jevity tube feeds, MiraLax b.i.d. for two days, Protonix 40 mg IV daily, Lovenox 40 mg subcu daily, Seroquel 25 mg at bedtime, DuoNeb inhaler, Neurontin 200 mg t.i.d., multivitamin daily, Bumex was just discontinued, clonidine 0.2 mg t.i.d., Zosyn 3.375 g IV q.8 was just discontinued, vancomycin per pharmacy which was just discontinued, and p.r.n.'s. ALLERGIES He has no known drug allergies. FAMILY HISTORY Not able to be obtained from this confused patient. SOCIAL HISTORY The patient does admit to smoking. He is a binge alcohol user. No drug use reported. He was living in a shelter house before coming in. REVIEW OF SYSTEMS A complete 12-point review of systems was attempted, but was made Unit #: [id number] #: [id number] Patient: SUNI CHEN difficult with his confusion after just getting off the ventilator. He has had some low-grade fevers, but no chills, but there has been no vomiting or diarrhea reported with his tube feeds. No hemoptysis. No hematuria. No swelling. No rashes. No itching reported. No pain issues. He does appear to still be a little bit anxious. Unless otherwise indicated, the review of systems was not able to be obtained. PHYSICAL EXAMINATION VITAL SIGNS: Temperature 99.3, pulse 98, respiratory rate 17, blood pressure 139/76. I's and O's are negative by 795 mL. GENERAL: This is a 61-year-old male, just extubated, somewhat anxious, but in no acute distress. HEENT: Head is atraumatic and normocephalic. Eyes show pink conjunctivae with no scleral icterus. NG tube is in place with no nosebleed. Oropharynx is dry. NECK: Thick with no JVD. HEART: Regular rate and rhythm with no murmur or rub appreciated. LUNGS: Have diffuse scattered rhonchi and some wheezes. Breathing is nonlabored at rest. ABDOMEN: Morbidly obese, but soft, nontender. Bowel sounds are present. No masses appreciated. EXTREMITIES: No lower extremity clubbing, cyanosis, or edema. SKIN: Dry without rashes. GENITOURINARY: Foster catheter is in place with nonbloody urine. MUSCULOSKELETAL: No CVA tenderness to palpation. No joint effusions noted. NEUROLOGIC: Cranial nerves appear grossly intact. There do not appear to be any focal neurologic deficits. LYMPHATIC: There is no neck or cervical lymphadenopathy. PSYCHIATRIC: Mood and affect appear normal. He is a little anxious. DIAGNOSTIC STUDIES IMAGING STUDIES: Chest x-ray done earlier this morning showed some small volume left pleural effusion and some atelectasis. LABORATORY RESULTS: Sputum cultures growing Serratia and Staph aureus with the Staph being oxacillin sensitive. Chemistry this morning; sodium 146, potassium 3.8, chloride 115, bicarb 24, glucose 126, creatinine up to 2. Magnesium and phosphorus were normal. CBC; white count 4.9, hemoglobin 11.9, platelet count 131 with no peripheral eosinophilia. Vancomycin level this morning was 11. Blood cultures are negative thus far. Amylase and lipase on admission were normal. Urinalysis on admission did show 1+ protein and no blood with hyaline casts. Urine drug screen was positive for benzodiazepines. Ammonia level was 12. INR was 1. Admission chemistry noteworthy for a potassium of 2.9 and a creatinine of 1.3. The creatinine did actually improve down to 0.6 on 09/22/2016 before steadily rising to 1.6, 1.8, and now 2. Also, on the chemistry, I do note an elevated AST on the 12th at 126 and ALT of 76. No kidney imaging done to this point. ASSESSMENT AND PLAN 1. Acute kidney injury. This looks to be most likely some Acute tubular necrosis from significant hypotension with blood pressures dropping into the 90s on 09/22/2016 as his creatinine has steadily risen from there. Certainly, cannot rule out prerenal azotemia from his Bumex use and negative fluid balance or toxicity from his vancomycin and Zosyn. Vancomycin, Zosyn, and Bumex have all been stopped. He does look a little intravascularly dry and so I will be giving him some fluids today in the Unit #: [id number] #: [id number] Patient: SUNI CHEN form of D5W. We will send off urine studies as well as check a CPK level with his elevated AST. We will put a hold parameter on the clonidine to avoid further hypotension. 2. Hypernatremia. Bumex has been stopped and D5W has been ordered. 3. Hypokalemia. This is improved with replacement. 4. Alcoholism. The patient has now gone through delirium tremens and seems to be doing better. 5. Pneumonia. Vancomycin and Zosyn were just stopped and Rocephin started by Dr. Carter. 6. Elevated liver function tests. We will repeat those in the morning. I would like to thank Dr. Carter, Pulmonary, for this consultation and the opportunity to participate in the evaluation and care of Mr. Chen. Dictated by... Issa Mendes Jr., M.D. JESSICA/nemo TD: 09/25/2016 02:14 JOB #: [id number] CONSULTATION REPORT Page 1 of 1 X Issa Mendes MD CONSULTATION REPORT
--- NOTE | ~2016-09-20 | EKG ---
PATIENT: SUNI GIORDANO UNIT #: [id number] Ventricular Rate: 69 BPM Atrial Rate: 69 BPM P-R Interval: 148 ms QRS Duration: 102 ms Q-T Interval: 434 ms QTC Calculation(Bezet): 465 ms P [place]: 53 degrees Calculated R [place]: -57 degrees Calculated T [place]: -130 degrees Diagnosis Line: Normal sinus rhythm Diagnosis Line: Left axis deviation Diagnosis Line: Inferior infarct (cited on or before 20-SEP-2016) Diagnosis Line: ST and Marked T wave abnormality, consider Diagnosis Line: anterolateral ischemia Diagnosis Line: Abnormal ECG Diagnosis Line: When compared with ECG of 22-SEP-2016 06:43, Diagnosis Line: QT has shortened Diagnosis Line: Confirmed by JESS KATZ MD ([id number]) on 09/28/2016 Diagnosis Line: 5:35:20 AM INTERPRETING MD: GIANNA BALLESTEROS
--- NOTE | ~2016-09-20 | A ---
[facility] Nutrition Therapy DATE: 09/21/16 Patient: SUNI GIORDANO Physician: ANGELIQUE Address: [address] [place] [address] Room/Bed: [address], Zip: [place] [address] Admit Date: 09/20/16 Date of : [birth year] Height: Weight: 260 118 NUTRITIONAL ASSESSMENT: REASON: Need for enteral nutrition recommendations in ICU Admitting Dx: 61 y/o male admitted from [facility] while undergoing ETOH detox with AMS PMH: heavy ETOH abuse, obesity, asthma, < 1 ppd smoker Anthropometrics: Ht: 72", Wt: 118 kg (260 lbs), BMI: 34 (Obese stage I) Labs: K+ 3.1, glucose 146, AST 139, ALT 77, Mg WNL on 09/20, Phos not checked Meds: PPI, D5 w/ MVI/Thiamine/Folic acid, Therapeutic formula, Precedex, Loperamide, Phenergan, KCL, MgSO4, psych meds noted I/O & Bowel function: LBM unknown Skin Integrity: No issues, no edema Estimated Nutrition Needs: 7486-5031 kcals per day (15-20 kcals/kg) 94-118 g protein per day (0.8-1.0 g/kg) Fluids consistent with kcal needs or per MD Assessment: Chart reviewed, events noted. See admitting dx and PMH as stated above. Admitted from [facility] with AMS while undergoing ETOH detox, has hx of heavy ETOH abuse noted to drink a fifth of 100 proof liquor daily. Patient is confused, agitated, combative at times. 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 Hx obesity, 0 points scored on the malnutrition risk screen. He is on 2L nasal cannula however is not appropriate for PO intake at this time due to AMS- nursing to place DHT today. Of note, he will be at risk for refeeding syndrome due to ETOH abuse- is on CIWA protocol. See RD recs, will follow hospital course. Dx: 1) Inadequate oral intake r/t nutrition not yet initiated AEB NPO, need for EN. 2) Stage I obese r/t PMH, diet, lifestyle AEB BMI 34. Intervention: EN recs as stated below, lyte replacement Monitoring, Evaluation and Goals: 1. EN consistent with estimated needs. 2. Tolerance of diet advancement per [employer] M113 once appropriate/ordered. 3. Labs WNL (glucose, lytes). [facility] Nutrition Therapy DATE: 09/21/16 Patient: SUNI GIORDANO Physician: ANGELIQUE Address: [address] [place] [address] Room/Bed: [address], Zip: [place] [address] Admit Date: 09/20/16 Date of : [birth year] Height: Weight: 260 118 4. Gradual weight loss towards a healthy BMI range. Monitor: Per protocol, criteria to determine if above goals met Recommendations: 1. Replace K+. Check Phos with next lab draw before starting enteral nutrition- if low replace before beginning feeds. 2. Once KUB confirms DHT placement suggest starting enteral nutrition with Jevity 1.5 @ 20 ml/hr and increase by 10 ml q 8 hours until goal rate of 60 ml/hr is reached. Please order 30 ml Prostat to be given per tube daily to help meet protein needs. This nutrition regimen will provide 2260 kcals, 117 g protein and 1094 ml water. Once at goal rate add free water flushes per MD; suggest 185 ml q 4 hours. *Patient is at risk for refeeding syndrome due to history of heavy ETOH abuse. Monitor lytes closely and replete to WNL prn. 3. Once mental status improves suggest [employer] M113 eval to determine safety of PO intake. Patient would benefit from healthy heart diet to promote gradual weight loss if appropriate. RD will follow hospital course Moderate nutrition risk Respectfully, Edita Mandujano, TIFF, LD [employer] [facility] [employer] cc: client file
--- NOTE | ~2016-09-20 | CT71 ---
[facility] A Service of [facility] RADIOLOGY TEXT RESULTS PATIENT: SUNI GIORDANO LOCATION: [facility] [address]88 : [birth year] UNIT #: [id number] AGE: [address]: PATRICE CARTER MD SEX: M ORDER DR: [id number] [facility] [address] [facility]. [place], [place] [address] [id number] I MR#: [id number] Acc #: [id number] NAME: SUNI GIORDANO. : 1955 SEX: M STUDY DATE/TIME: 09/20/2016 02:17 UNIT: CED ROOM: 24524 STUDY DESCRIPTION: CT Head Wo Contrast Attending Physician: Patrice Carter M.D. Ordering Physician: Petty Callahan A.P.R.N. Primary Care Physician: Primary Care Physician No MEDICAL IMAGING REPORT This report is preliminary unless electronic signature is present EXAM Head CT, 09/20 at 02:17 INDICATION Unsteady on feet. Patient sent from [facility]. Patient is undergoing alcohol detoxification. Patient has had current symptoms for [address] exam was performed with one or more of the following radiation dose reduction techniques: automatic exposure control, adjustment of mA and/or kV according to patient size, and iterative reconstruction. FINDINGS Axial noncontrast images were obtained from the skull base to the vertex. Ventricular size and configuration are normal. There is no evidence of acute infarct or hemorrhage. There are no extra-axial fluid collections. No mass lesion or mass effect is seen. There are no skull fractures. IMPRESSION Normal noncontrast head CT. Dictated by... Vinayak Chauhan Jr., M.D. THIS IS AN ELECTRONICALLY VERIFIED REPORT Vinayak Chauhan Jr., M.D. at 09/20/2016 11:15 AM CHELA/demetrius TD: 09/20/2016 08:20 JOB #: [id number] [facility] A Service of [facility] RADIOLOGY TEXT RESULTS PATIENT: SUNI GIORDANO LOCATION: [facility] [address] : [birth year] UNIT #: [id number] AGE: [address]: PATRICE CARTER MD SEX: M ORDER DR: MEDICAL IMAGING REPORT Page 1 of 1 COPY
--- NOTE | ~2016-09-20 | CR72 ---
[facility] A Service of [facility] RADIOLOGY TEXT RESULTS PATIENT: SUNI GIORDANO LOCATION: [address] : [birth year] UNIT #: [id number] AGE: [address]: PATRICE CARTER MD SEX: M ORDER DR: [id number] [facility] [address] [facility]. [place], [place] [address] [id number] I MR#: [id number] #: [id number] NAME: SUNI GIORDANO. : 1955 SEX: M STUDY DATE/TIME: 09/22/2016 UNIT: [facility] ROOM: [facility] STUDY DESCRIPTION: CR Chest Single View Portable Attending Physician: Patrice Carter M.D. Ordering Physician: Marline Gresham M.D. Primary Care Physician: Primary Care Physician No MEDICAL IMAGING REPORT This report is preliminary unless electronic signature is present EXAM Portable chest 09/22 at 01:07 INDICATIONS Respiratory failure. Ventilator patient. Aspiration. EtOH detox. FINDINGS AP portable chest compared with 09/21/2016. The heart size stable. There is new infiltrate or atelectasis in the right [id number]-im-ynrhp lung and left base. Pneumonia not excluded, particularly on the right. There is a small volume of right pleural fluid. No pneumothorax is seen. Dictated by... Vinayak Chauhan Jr., M.D. THIS IS AN ELECTRONICALLY VERIFIED REPORT Vinayak Chauhan Jr., M.D. at 09/22/2016 9:25 PM CHELA/mitchell TD: 09/22/2016 09:27 JOB #: [id number] MEDICAL IMAGING REPORT Page 1 of 1 COPY
--- NOTE | ~2016-09-20 | TH ---
Unit #: [id number] #: [id number] Patient: SUNI GIORADNO [id number] [address] [address] [id number] I MR#: [id number] NAME: SUNI GIORDANO. : 1955 SEX: M STUDY DATE/TIME: 09/27/2016 UNIT: C3A PCU ROOM: [facility] STUDY DESCRIPTION: Lexiscan stress test - Nuclear Attending Physician: Britt Taylor M.D. Primary Care Physician: No Primary Care Physician CARDIOLOGY REPORT PROCEDURE PERFORMED Lexiscan Cardiolite stress test - Nuclear portion. PROCEDURE Using technetium 99m-labeled Cardiolite, rest and stress SPECT images were obtained. Multiple SPECT images were obtained in various views, including horizontal and vertical long axis and short axis views of the left ventricle. Images were obtained by gated SPECT method. The patient was administered 11.76 mCi of Cardiolite at rest. The patient was administered 34.9 mCi of Cardiolite after Lexiscan infusion was completed. On the stress images, there is a medium sized area of moderately decreased tracer uptake activity inferiorly. The rest images show a smaller area of mildly decreased tracer uptake activity inferiorly. Comparing the rest and stress images, a medium sized area of stress-induced ischemia involving the inferior wall of the left ventricle cannot be ruled out. The left ventricular ejection fraction is calculated to be 56%. There is no focal wall motion abnormality seen. CONCLUSION 1. A medium sized area of stress-induced ischemia involving the inferior wall of the left ventricle is suspected. 2. The left ventricular ejection fraction is calculated to be 56%. 3. There is no focal wall motion abnormality seen. 4. The technical quality of the images is extremely poor because of the patient's large body habitus. Clinical correlation is requested. Dictated by... Miriam Carias TD: 09/27/2016 12:22 JOB #: [id number] Unit #: [id number] #: [id number] Patient: SUNI GIORDANO CARDIOLOGY REPORT Page 1 of 1 X Amanda Iraheta MD <ELECTRONICALLY SIGNED> 01/01/17 1429 CARDIOLOGY REPORT
--- NOTE | ~2016-09-20 | EKG ---
PATIENT: SUNI GIORDANO UNIT #: [id number] Ventricular Rate: 86 BPM Atrial Rate: 86 BPM P-R Interval: 144 ms QRS Duration: 88 ms Q-T Interval: 414 ms QTC Calculation(Bezet): 495 ms P [place]: 68 degrees Calculated R [place]: -55 degrees Calculated T [place]: 51 degrees Diagnosis Line: Normal sinus rhythm Diagnosis Line: Left axis deviation Diagnosis Line: Low voltage QRS Diagnosis Line: Inferior infarct , age undetermined Diagnosis Line: Abnormal ECG Diagnosis Line: No previous ECGs available Diagnosis Line: Confirmed by JESS KATZ MD ([id number]) on 09/20/2016 Diagnosis Line: 10:48:25 PM INTERPRETING MD: GIANNA BALLESTEROS
--- NOTE | ~2016-09-20 | EKG ---
PATIENT: SUNI GIORDANO UNIT #: [id number] Ventricular Rate: 65 BPM Atrial Rate: 65 BPM P-R Interval: 138 ms QRS Duration: 100 ms Q-T Interval: 464 ms QTC Calculation(Bezet): 482 ms P [place]: 47 degrees Calculated R [place]: -59 degrees Calculated T [place]: -143 degrees Diagnosis Line: Normal sinus rhythm Diagnosis Line: Left axis deviation Diagnosis Line: Inferior infarct (cited on or before 29-SEP-2016) Diagnosis Line: ST and Marked T wave abnormality, consider Diagnosis Line: anterolateral ischemia Diagnosis Line: Abnormal ECG Diagnosis Line: When compared with ECG of 29-SEP-2016 17:05, Diagnosis Line: No significant change was found Diagnosis Line: Confirmed by PATTI RAM MD ([id number]) on Diagnosis Line: 09/30/2016 9:35:22 PM INTERPRETING MD: MARCELLE
--- NOTE | ~2016-09-20 | CO ---
Unit #: [id number] #: [id number] Patient: SUNI CHEN [id number] [facility] [address] [facility]. [place], [place] [address] [id number] I MR#: [id number] NAME: SUNI CHEN ROOM: 576 Age: 61 Sex: M Admission Date: 09/20/2016 : 1955 Attending Physician: Britt Taylor M.D. Primary Care Physician: No Primary Care Physician Consultation Date: 09/30/2016 CONSULTATION REPORT REASON FOR CONSULTATION Followup DISCUSSION Mr. Suni Chen is a 81-year-old male seen in room 576, bed 1, on 09/30/2016 at [facility]. The patient was receiving respiratory therapy. The patient was able to answer questions appropriately. Pleasant and cooperative. Reports that he is feeling better. Decreasing anxiety. The patient reports that he had a cardiac catheterization done yesterday and two stents were placed. The patient reports that he would like to come to the program at [facility]. Currently denied any suicidal or homicidal ideation. Denied any psychotic symptoms. PHYSICAL EXAMINATION VITALS: Stable. 98.1, 72, 18, 178/88, oxygen saturation 98%. COMPLETE REVIEW OF SYSTEMS Unremarkable except for anxiety. MENTAL STATUS EXAMINATION General appearance, the patient is dressed casually. Attention span and concentration fair. Oriented to place and person. Mood and affect sad and dysphoric. Speech is regular rate. Thought process is goal directed. Thought content, the patient denied any thoughts of harming self or others. Recent and remote memory fair. Language, able to name objects and repeat phrases. Fund of knowledge fair. Insight and judgment fair to slightly impaired. DIAGNOSES 1. Alcohol use disorder, severe, F10.20. 2. Mood disorder, NOS, F32.9. ASSESSMENT/PLAN 1. Supportive psychotherapy, psychoeducation provided to the patient. 2. Educated about benefits and side effects of medication and progression of illness. 3. Have the patient follow up at [facility] program at [facility] after discharge. If needed, we will make adjustment of medication. Please feel free to call if any questions. Telephone number is [phone]. Unit #: [id number] #: [id number] Patient: SUNI CHEN. Luis Bernabe M.D. SZC/gz TD: 10/01/2016 07:59 JOB #: [id number] CONSULTATION REPORT Page 1 of 1 X Luis Bernabe MD CONSULTATION REPORT
--- NOTE | ~2016-09-20 | CR7 ---
[facility] A Service of [facility] RADIOLOGY TEXT RESULTS PATIENT: SUNI GIORDANO LOCATION: [address] : [birth year] UNIT #: [id number] AGE: [address]: PATRICE BLOOM MD SEX: M ORDER DR: [id number] [facility] [address] [facility]. [place], [place] [address] [id number] I MR#: [id number] Acc #: [id number] NAME: SUNI GIORDANO. : 1955 SEX: M STUDY DATE/TIME: 09/21/2016 10:02 UNIT: [facility] ROOM: [facility] STUDY DESCRIPTION: CR Abdomen Single AP View Attending Physician: Patrice Bloom M.D. Ordering Physician: [facility] Primary Care Physician: Primary Care Physician No MEDICAL IMAGING REPORT This report is preliminary unless electronic signature is present EXAM Single view abdomen INDICATIONS Enteric tube placement. Single AP view of the abdomen compared to a radiograph from 02/11/1949. Enteric tube in the stomach. Bowel gas pattern is nonobstructive. IMPRESSION Enteric tube has been repositioned with the tip below the diaphragm and in the stomach. Dictated by... Les Artis M.D. THIS IS AN ELECTRONICALLY VERIFIED REPORT Les Artis M.D. at 09/21/2016 1:59 PM RICHA/mitchell TD: 09/21/2016 12:58 JOB #: [id number] MEDICAL IMAGING REPORT Page 1 of 1 COPY
--- NOTE | ~2016-09-20 | ST ---
Unit #: [id number] #: [id number] Patient: SUNI GIORDANO [id number] [facility]. [address] [place], [place] [address] [id number] I MR#: [id number] NAME: SUNI GIORDANO. : 1955 SEX: M STUDY DATE/TIME: 09/27/2016 UNIT: C3A PCU ROOM: [address] [place] [address] DESCRIPTION: Lexiscan stress test Attending Physician: Britt Taylor M.D. Primary Care Physician: No Primary Care Physician CARDIOLOGY REPORT PROCEDURE PERFORMED Lexiscan Cardiolite stress test - Lexiscan portion. DESCRIPTION Resting heart rate is 67. Resting blood pressure is 151/44 mmHg. Baseline EKG shows sinus rhythm with T wave inversions noted diffusely in the anterolateral leads and the inferior leads. PROCEDURE Lexiscan, 0.4 mg, was given. The patient continued to have significant T wave inversions noted in the anterolateral and the inferior leads. The patient had frequent single multifocal premature ventricular complexes noted. Cardiolite injection was given after Lexiscan infusion was completed. Maximal heart rate obtained is 91, which is 56% of maximal predicted heart rate. Maximal blood pressure obtained is 151/94 mmHg. CONCLUSION 1. Baseline EKG shows sinus rhythm with significant T wave inversions in the anterolateral and the inferior leads. 2. The patient continued to have significant T wave inversions and also had new single premature ventricular complexes during and post Lexiscan infusion. 3. Please correlate with nuclear findings. Dictated by... Miriam Carias TD: 09/27/2016 12:35 JOB #: [id number] Unit #: [id number] #: [id number] Patient: SUNI GIORDANO CARDIOLOGY REPORT Page 1 of 1 X Amanda Iraheta MD <ELECTRONICALLY SIGNED> 01/01/17 1429 CARDIOLOGY REPORT
--- NOTE | ~2016-09-20 | EKG ---
PATIENT: SUNI GIORDANO UNIT #: [id number] Ventricular Rate: 73 BPM Atrial Rate: 73 BPM P-R Interval: 142 ms QRS Duration: 98 ms Q-T Interval: 412 ms QTC Calculation(Bezet): 453 ms P [place]: 57 degrees Calculated R [place]: -65 degrees Calculated T [place]: 22 degrees Diagnosis Line: Normal sinus rhythm Diagnosis Line: Left axis deviation Diagnosis Line: Low voltage QRS Diagnosis Line: Inferior infarct , age undetermined Diagnosis Line: ST and T wave abnormality, consider anterolateral Diagnosis Line: ischemia Diagnosis Line: Abnormal ECG Diagnosis Line: When compared with ECG of 27-SEP-2016 09:37, Diagnosis Line: Nonspecific T wave abnormality has replaced Diagnosis Line: inverted T waves in Inferior leads Diagnosis Line: Confirmed by JESS KATZ MD ([id number]) on 09/29/2016 Diagnosis Line: 10:48:27 PM INTERPRETING MD: GIANNA BALLESTEROS
--- NOTE | ~2016-09-20 | EKG ---
PATIENT: SUNI GIORDANO UNIT #: [id number] Ventricular Rate: 86 BPM Atrial Rate: 86 BPM P-R Interval: 144 ms QRS Duration: 94 ms Q-T Interval: 584 ms QTC Calculation(Bezet): 698 ms P [place]: 55 degrees Calculated R [place]: -74 degrees Calculated T [place]: -157 degrees Diagnosis Line: Normal sinus rhythm Diagnosis Line: Left axis deviation Diagnosis Line: Pulmonary disease pattern Diagnosis Line: Inferior infarct (cited on or before 20-SEP-2016) Diagnosis Line: ST and Marked T wave abnormality, consider Diagnosis Line: anterolateral ischemia Diagnosis Line: Prolonged QT considerNEUROGENIC insult as a cause Diagnosis Line: of EKG changes Diagnosis Line: Abnormal ECG Diagnosis Line: When compared with ECG of 20-SEP-2016 01:32, Diagnosis Line: T wave inversion now evident in Inferior leads Diagnosis Line: T wave inversion now evident in Anterolateral Diagnosis Line: leads Diagnosis Line: QT has lengthened Diagnosis Line: Confirmed by JESS KATZ MD ([id number]) on 09/23/2016 Diagnosis Line: 7:51:38 PM INTERPRETING MD: GIANNA BALLESTEROS
--- NOTE | ~2016-09-20 | CR72 ---
[facility] A Service of [facility] RADIOLOGY TEXT RESULTS PATIENT: SUNI GIORDANO LOCATION: [address]15 : [birth year] UNIT #: [id number] AGE: [address]: PATRICE BLOOM MD SEX: M ORDER DR: [id number] [facility] [address]. [place], [place] [address] [id number] I MR#: [id number] Acc #: [id number] NAME: SUNI GIORDANO. : 1955 SEX: M STUDY DATE/TIME: 09/21/2016 9:51 UNIT: [facility] ROOM: [facility] STUDY DESCRIPTION: CR Chest Single View Portable Attending Physician: Patrice Bloom M.D. Ordering Physician: Oneyda Bloom M.D. Primary Care Physician: Primary Care Physician No MEDICAL IMAGING REPORT This report is preliminary unless electronic signature is present EXAM Single view chest FINDINGS Single portable AP view of the chest compared to 09/21/2016. Enteric tube is malpositioned in the right bronchus. This has been removed and no pneumothorax is visualized on the repeat radiograph at 10:03. Heart and mediastinal contours are otherwise normal. Lungs are clear. IMPRESSION Abnormal placement of the enteric tube in the right lower lobe bronchus. A followup chest radiograph was obtained with the enteric tube removed. No pneumothorax. Dictated by... Les Artis M.D. THIS IS AN ELECTRONICALLY VERIFIED REPORT Les Artis M.D. at 09/21/2016 1:59 PM Clarissa TD: 09/21/2016 12:45 JOB #: [id number] MEDICAL IMAGING REPORT Page 1 of 1 COPY
--- NOTE | ~2016-09-20 | CR72 ---
[facility] A Service of [facility] & [facility] RADIOLOGY TEXT RESULTS PATIENT: SUNI GIORDANO LOCATION: [address]15 : [birth year] UNIT #: [id number] AGE: [address]: PATRICE BLOOM MD SEX: M ORDER DR: [id number] [facility] [address] [facility]. [place], [place] [address] [id number] I MR#: [id number] Acc #: [id number] NAME: SUNI GIORDANO. : 1955 SEX: M STUDY DATE/TIME: 09/23/2016 5:44 UNIT: [facility] ROOM: [facility] STUDY DESCRIPTION: CR Chest Single View Portable Attending Physician: Patrice Bloom M.D. Ordering Physician: Oneyda Bloom M.D. Primary Care Physician: Primary Care Physician No MEDICAL IMAGING REPORT This report is preliminary unless electronic signature is present EXAM AP portable chest 09/23/2016 HISTORY Central line placement. Respiratory failure. Patient on ventilator. TECHNIQUE AP portable chest x-ray. FINDINGS The exam shows no change since yesterday. Endotracheal tube, right IJ central line and feeding tube remain in good position. Mildly increased interstitial markings throughout both lungs, stable. No airspace consolidation or pleural effusion. Stable cardiomegaly. IMPRESSION Stable portable chest radiograph, unchanged since yesterday. Support devices in good position. Dictated by... Arsalan Solis M.D. THIS IS AN ELECTRONICALLY VERIFIED REPORT Arsalan Solis M.D. at 09/23/2016 1:32 PM BERNY/codi TD: 09/23/2016 07:17 JOB #: [id number] MEDICAL IMAGING REPORT Page 1 of 1 COPY
--- NOTE | ~2016-09-20 | FU ---
[facility] Nutrition Therapy DATE: 09/24/16 Patient: SUNI GIORDANO Physician: ANGELIQUE Address: [address] [place] [address] Room/Bed: [address], Zip: [place] [address] Admit Date: 09/20/16 Date of : 59 Height: Weight: 282 128 NUTRITION MONITORING/FOLLOW-UP: Reason: PT SEEN FOR FOLLOW-UP/ENTERAL NUTRITION SUPPORT DX: AMS (SENT FROM [facility]), ETOH DETOX Anthropometrics: 6'0", WT: 282# (128 KG), BMI: 38.2 -ADMIT WEIGHT: 260#, ?FLUID RETENTION Labs: GLUl 126, CREAT: 2.0, CA+:7.9, ALB: 2.9, AST: 126, ALT: 76, NA+:146, GFR: 35.5 Meds: SENOKOT, KCL, PHENERGAN, PROTONIX, MIRALAX I&O's: 3280/4075 Skin: BLE 1+ EDEMA Estimated Nutrition Needs: [id number] KCAL 94-118 G PRO Assessment: CHART REVIEWED AND EVENTS NOTED. PT SEEN FOR FOLLOW-UP. PT S/P EXTUBATION THIS AM. OF NOTE, PT CONFUSED AT AT THIS TIME. PT RECEIVING ALTERNATIVE NUTRITION SUPPORT OF JEVITY 1.5 @ 60 ML/HR + SUGAR-FREE PROSTAT. PER PUMP HISTORY, PT RECEIVING ~85% ESTIMATED NEEDS PAST 24 HOURS. PER RN AND CHART, PT TOLERATING EN. PLANS IN PLACE FOR [facility] DOC LATER TODAY. PT NOT APPROPRIATE FOR DIET EDUCATION. RD TO CONTINUE TO FOLLOW. -TUBE FEEDS PROVIDE 2260 KCAL, 107 G PRO, 1094 ML FREE H20 Dx: INADEQUATE ORAL INTAKE R/T NUTRITION NOT YET INITIATED AEB NPO STATUS, NEED FOR EN.-RESOLVED. STAGE 1 OBESITY R/T DIET, LIFESTYLE AEB BMI OF 34.-ACTIVE. Intervention: 1. ENTERAL NUTRITION SUPPORT Monitoring, Evaluation and Goals: GOALS MET 1. ENTERAL NUTRITION; PROVIDE ~80-100% ESTIMATED NUTRIENT NEEDS 2. ORAL INTAKE; ADVANCE DIET PER FORESTRY HUNTER/TOLERATE DIET W/NO C/O N/V/D (PO>50%) 3. LABS; WNL 4. WEIGHTS; PROMOTE GRADUAL WEIGHT LOSS MONITOR: -TF RATE/RESIDUALS -WEIGHTS -FORESTRY HUNTER EVAL [facility] Nutrition Therapy DATE: 09/24/16 Patient: SUNI GIORDANO Physician: ANGELIQUE Address: [address] [place] [address] Room/Bed: [address], Zip: [place] [address] Admit Date: 09/20/16 Date of : 59 Height: Weight: 282 128 -DIET ADVANCEMENT/PO INTAKE Recommendations: 1. ONCE MEDICALLY FEASIBLE, ADVANCE DIET PER FORESTRY HUNTER + HH DIET 2. IF FORESTRY HUNTER DEEMS PT NOT APPROPRIATE FOR DIET ADVANCEMENT, RE-START PREVIOUS ENTERAL NUTRITION SUPPORT OF JEVITY 1.5 @ 60 ML/HR + SUGAR-FREE PROSTAT DAILY -ADEQUATE FOR PT'S CURRENT ESTIMATED NEEDS CONTINUE FREE H20 FLUSHES PER MD RD WILL F/U PER PROTOCOL PT IS MODERATELY COMPROMISED Respectfully, RAJNI FRANCO MS, RD, LD [employer] [facility] cc: client file
--- NOTE | ~2016-09-20 | US77 ---
[facility] A Service of [facility] & [facility] RADIOLOGY TEXT RESULTS PATIENT: SUNI GIORDANO LOCATION: [facility] 325- : 59 UNIT #: [id number] AGE: [address]: Britt Taylor MD SEX: M ORDER DR: [id number] [facility] [address]. [place], [place] [address] [id number] I MR#: [id number] Acc #: [id number] NAME: SUNI GIORDANO. : 1955 SEX: M STUDY DATE/TIME: 09/28/2016 10:36 [facility] STUDY DESCRIPTION: US Kidney Bilateral Complete Attending Physician: Britt Taylor M.D. Ordering Physician: Issa Mendes Jr., M.D. Primary Care Physician: No Primary Care Physician MEDICAL IMAGING REPORT This report is preliminary unless electronic signature is present EXAM Bilateral renal ultrasound, 09/28/2016. HISTORY 61-year-old male with renal failure. GFR 50.3. BUN 15. Creatinine 1.5. COMPARISON None FINDINGS Right kidney measures 13.0 x 5.7 x 6.2 cm. The left kidney is largely obscured by bowel gas, measuring 9.8 x 5.8 x 4.3 cm. Both kidneys demonstrate normal cortical thickness. No suspicious cystic or solid renal mass lesion is seen. No shadowing renal stone or hydronephrosis is identified. The urinary bladder is moderately distended, but appears unremarkable. IMPRESSION Limited evaluation of the left kidney due to obscuration by bowel gas. No renal lesion is seen. There is no evidence of right or left hydronephrosis. Dictated by... Anjali Paul M.D. THIS IS AN ELECTRONICALLY VERIFIED REPORT Anjali Paul M.D. at 09/29/2016 8:34 AM Lainey TD: 09/28/2016 18:15 JOB #: [id number] [facility] A Service of [facility] RADIOLOGY TEXT RESULTS PATIENT: SUNI GIORDANO LOCATION: [facility] 325-01 : 59 UNIT #: [id number] AGE: [address]: Britt Taylor MD SEX: M ORDER DR: MEDICAL IMAGING REPORT Page 1 of 1 COPY
--- NOTE | ~2016-09-20 | CR7 ---
[facility] A Service of [facility] RADIOLOGY TEXT RESULTS PATIENT: SUNI GIORDANO LOCATION: [address]07-15 : [birth year] UNIT #: [id number] AGE: [address]: PATRICE BLOOM MD SEX: M ORDER DR: [id number] [facility] [address]. [place], [place] [address] [id number] I MR#: [id number] Acc #: [id number] NAME: SUNI GIORDANO. : 1955 SEX: M STUDY DATE/TIME: 09/21/2016 9:49 UNIT: [facility] ROOM: [facility] STUDY DESCRIPTION: CR Abdomen Single AP View Attending Physician: Patrice Bloom M.D. Ordering Physician: Oneyda Bloom M.D. Primary Care Physician: Primary Care Physician No MEDICAL IMAGING REPORT This report is preliminary unless electronic signature is present EXAM Single view abdomen INDICATION Enteric tube placement. FINDINGS Single AP view of the abdomen compared to 09/21/2016. The enteric tube is malpositioned. The tip is in the right lower lobe bronchus. This should be removed under physician supervision with followup chest radiographs to evaluate for pneumothorax. The bowel gas pattern is nonobstructive. IMPRESSION Malpositioned enteric tube with the tip in the right lower lobe bronchus. This should be removed with physician supervision and a followup chest radiograph to evaluate for pneumothorax. Findings were called to the patient's nurse at 10:18 on 09/21/2016. The nursing staff was already aware of the finding and has obtained a repeat chest radiograph showing no pneumothorax. Dictated by... Les Artis M.D. THIS IS AN ELECTRONICALLY VERIFIED REPORT Les Artis M.D. at 09/21/2016 1:59 PM RICHA/cdoi TD: 09/21/2016 12:55 JOB #: [id number] [facility] A Service of [facility] RADIOLOGY TEXT RESULTS PATIENT: SUNI GIORDANO [facility] 59 UNIT #: [id number] AGE: [address]: PATRICE BLOOM MD SEX: M ORDER DR: MEDICAL IMAGING REPORT Page 1 of 1 COPY
--- NOTE | ~2016-09-20 | CO ---
Unit #: [id number] #: [id number] Patient: SUNI GIORDANO [id number] [address] [place], [place] [address] [id number] I MR#: [id number] NAME: SUNI GIORDANO. ROOM: 576 Age: 61 Sex: M Admission Date: 09/20/2016 : 1955 Attending Physician: Britt Taylor M.D. Consultation Date: 09/28/2016 CONSULTATION REPORT REASON FOR CONSULTATION Hemoccult-positive stools and anemia. HISTORY OF PRESENT ILLNESS Mr. Mills is a 61-year-old white gentleman with a longstanding history of COPD, alcohol abuse and obesity, who has been admitted from [facility] because of delirium tremens secondary to alcohol withdrawal and altered mental status. The patient drinks heavily and drinks about half a gallon of vodka a day. He has been drinking for the past 40 years. He was admitted with acute kidney injury along with altered mental status due to DTs. However, he denies any history of hematemesis, melena, hematochezia or any overt GI bleed. He has been found to have he has no abdominal pain, change in bowel habits, no postprandial dyspeptic symptoms. The patient was informed to have heme-positive stools as well as anemia on admission. PAST MEDICAL HISTORY Significant for history of bronchial asthma, COPD, heavy alcohol abuse, tobacco abuse, obesity. PAST SURGICAL HISTORY previous abdominal surgeries. MEDICATIONS Prior to admission included Claritin. ALLERGIES He has no known drug allergies. 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 Does smoke a pack of cigarette daily and has been drinking half a gallon of vodka daily. He has been drinking for the last 40 years. FAMILY HISTORY Both parents of unknown cancers. REVIEW OF SYSTEMS Detailed review of organ system does not reveal any recent weight loss. No history of fever, chills, or rigors. No history of headache, seizures, chest pain, or syncope. No history of cough, expectoration, or hemoptysis. No history of dysuria, hematuria or pyuria. No history of focal seizures or extremity weakness. Unit #: [id number] #: [id number] Patient: SUNI GIORDANO PHYSICAL EXAMINATION GENERAL: He is alert and oriented, appears comfortable. VITAL SIGNS: Stable with a temperature of 99, pulse 82 per minute, respiratory rate is 18, blood pressure 156/82. He weighs 263 pounds and appears obese. HEENT: He has mild pallor, there being no icterus, lymphadenopathy, or peripheral edema. CARDIOVASCULAR: Normal heart sounds. No murmurs on auscultation. LUNGS: Reveal normal breath sounds. Good air entry. ABDOMEN: Soft and nontender. Liver and spleen are not palpable. Bowel sounds normal. DIAGNOSTIC STUDIES LABORATORY RESULTS: Hemoglobin of 12.5 with an MCV of 105. White count is normal and platelet count is also normal. INR is 1.1. Serum chemistry shows a BUN and creatinine of 17 and 2.0. Albumin is 2.6. The patient has mild indirect hyperbilirubinemia. AST and ALT are peaked at 138 and 77 and showing a declining trend. Alkaline phosphatase is normal. Amylase and lipase are also normal. CLINICAL IMPRESSION The patient with an occult gastrointestinal blood loss without any old gastrointestinal bleed and without any significant anemia. More pressing problem seems to be alcoholic withdrawal and delirium tremens. In addition, the patient is scheduled for Cardiolite stress test for tomorrow. Under the circumstance, it would be best to have cardiac evaluation and neuropsychiatric evaluation and be discharged home, and he does require an outpatient colonoscopy sometime in the future. No specific intervention is needed from gastrointestinal standpoint. Thank you very much for asking me to see this gentleman. I appreciate the consult. Dictated by... Miriam Newman/nemo TD: 10/02/2016 06:55 JOB #: [id number] CC: Jerald Rowe M.D. CONSULTATION REPORT Page 1 of 1 X Hasmukh Sotelo MD X CONSULTATION REPORT
--- NOTE | ~2016-09-20 | CO ---
Unit #: [id number] #: [id number] Patient: SUNI GIORDANO [id number] [address] [place], [place] [address] [id number] I MR#: [id number] NAME: SUNI GIORDANO. ROOM: [facility] Age: 61 Sex: M Admission Date: 09/20/2016 : 1955 Attending Physician: Eliud Carter M.D. Primary Care Physician: No Primary Care Physician CONSULTATION REPORT REASON FOR CONSULTATION Critical care management. CHIEF COMPLAINT Altered mental status. HISTORY OF PRESENT ILLNESS 61-year-old male who has a past medical history of asthma, obesity, seasonal allergies, presented with a complaint of altered mental status. He was originally admitted to [facility] for alcohol detox and transferred to our facility for further management. Has received Ativan, Geodon and Ketamine in the emergency room and currently still agitated. We have started him on Precedex currently maintaining airway very well but appears to be lethargic and confused. REVIEW OF SYSTEMS Unobtainable. PAST MEDICAL HISTORY 1. Obesity. 2. Seasonal allergies. 3. Asthma. SURGICAL HISTORY None. SOCIAL HISTORY Smokes half pack per day per records and is a binge drinker of alcohol and living in a fpc house. FAMILY HISTORY Unobtainable. MEDICATIONS Claritin. ALLERGIES No known drug allergies listed. PHYSICAL EXAMINATION VITAL SIGNS: Temperature 98, pulse 100, respirations 20, blood pressure is 160/72 now and oxygen saturation 100% on 2 L. NEUROLOGICAL: He is agitated. CVS: S1+ S2. Unit #: [id number] #: [id number] Patient: SUNI GIORDANO RESPIRATIONS: Bilateral mild rhonchi. GI: Nontender, soft. Bowel sounds positive. EXTREMITIES: No edema. SKIN: No rashes, no ulcers. LYMPHATIC: No lymphadenopathy. DIAGNOSTIC STUDIES IMAGING: CT of the head - no acute abnormality. Chest x-ray - no acute abnormality. LABORATORY: Blood gas - pH of 7.47, pCO2 of 35, pO2 is 128. The rest of the labs have been reviewed. ASSESSMENT AND PLAN 1. Alcohol withdrawal. 2. Altered mental status. 3. Asthma. 4. Tobacco abuse. 5. Hypokalemia. 6. Delirium tremens secondary to alcohol withdrawal. At this point, plan is to continue patient on IV fluids including dextrose and folic acid. We will continue Precedex as per alcohol withdrawal protocol and replace electrolytes. GI/DVT prophylaxis. Psych consultation. Please see orders for detailed plan. Currently, patient maintaining airway very well. We will continue to follow. I would like to thank you for your kind consideration to involve me in taking care of this patient. Dictated by... Miriam Awan/jason TD: 09/21/2016 07:18 JOB #: [id number] CONSULTATION REPORT Page 1 of 1 X Adarsh Nicole MD X CONSULTATION REPORT
[2016-09-20 01:38] LABS: BASOPHIL% 0.3 % (0-2.5); EOSINOPHIL% 0.8 % (0.0-7.0); HEMOGLOBIN 15.2 gm/dL (13.0-16.0); LYMPHOCYTE# 1.2 X10e3 (1.0-3.5); LYMPHOCYTE% 22.7 % (17.0-45.0); MEAN CELL VOLUME 101.3 FL (83-96); MEAN CORPUSCULAR HEMOGLOBIN 34.1 PG (28-34); MEAN CORPUSCULAR HGB CONC 33.7 g/dL (30-36); MEAN PLATELET VOLUME 8.8 FL (6.5-11.5); MONOCYTE# 0.6 X10e3 (0-1.0); MONOCYTE% 11.8 % (3.0-12.0); NEUTROPHIL# 3.4 X10e3 (1.5-7.1); NEUTROPHIL% 64.4 % (40-75); PLATELET COUNT 103 X10e3 (140-420); RED BLOOD COUNT 4.44 X10e (3.90-5.60); RED CELL DISTRIBUTION WIDTH 14.1 % (11.0-15.5); WHITE BLOOD COUNT 5.3 X10e3 (4.0-10.5)
[2016-09-20 01:40] LABS: DIFF IND NO
[2016-09-20 02:02] LABS: ALBUMIN SERUM 3.9 g/dL (3.5-5.0); ALKALINE PHOSPHATASE 45 U/L (32-92); ALT (SGPT) 72 U/L (10-40); AST (SGOT) 138 U/L (10-42); BILIRUBIN, DIRECT 0.5 mg/dL (0.0-0.2); BILIRUBIN,INDIRECT 1.5 mg/dL (0.0-0.9); BLOOD UREA NITROGEN 15 mg/dL (9-23); BUN/CREATININE RATIO 11.53; CALCIUM SERUM 9.4 mg/dL (8.4-10.2); CARBON DIOXIDE 27 mmol/L (22-31); CHLORIDE 98 mmol/L (100-111); CREATININE SERUM 1.3 mg/dL (0.6-1.4); GLOM FILT RATE Estimated 59.7 mL/min (>60); GLUCOSE FASTING 114 mg/dL (70-110); PROTEIN TOTAL SERUM 7.4 g/dL (6.0-8.3); SODIUM 137 mmol/L (135-145)
[2016-09-20 02:11] LABS: ALCOHOL BLOOD <5 mg/dL (0); POTASSIUM 2.9 mmol/L (3.5-5.1)
[2016-09-20 02:53] LABS: URINE SOURCE CLEAN CATCH
[2016-09-20 03:02] LABS: URINE APPEARANCE CLEAR; URINE BLOOD NEG (NEG); URINE COLOR DK YELLOW; URINE GLUCOSE NEG (NEG); URINE KETONE 2+ (NEG); URINE LEUKOCYTE ESTERASE TRACE (NEG); URINE NITRATE NEG (NEG); URINE PH 5.5 (5-8); URINE PROTEIN 1+ (NEG); URINE SPECIFIC GRAVITY 1.029 (1.003-1.035)
[2016-09-20 03:04] LABS: URINE BACTERIA AUWI NEG (NEGATIVE); URINE SQUAMOUS EPITHELIAL CELL NONE SEEN /[HPF]
[2016-09-20 03:10] LABS: AMPHETAMINE NEG (NEG); BARBITURATES NEG (NEG); BENZODIAZEPINES POS (NEG); COCAINE NEG (NEG); MARIJUANA NEG (NEG); OPIATES NEG (NEG); TRICYCLIC ANTIDEPRESSANTS NEG (NEG); U METHADONE NEG (NEG)
[2016-09-20 03:11] LABS: CULTURE INDICATED? NO; URINE BILIRUBIN POS (NEG)
[2016-09-20] MEDS ORDERED: THIAMINE HCL100 M2 IM (04:50)
[2016-09-20] MEDS ORDERED: THIAMINE HCL100 M1 PO (04:50)
[2016-09-20] MEDS ORDERED: THIAMINE H100 MG/1 M IM (04:51)
[2016-09-20] MEDS ORDERED: FOLIC ACID1 MG PO (04:51)
[2016-09-20] MEDS ORDERED: [UNRECOGNIZED DRUG - OTHER] PO (04:52)
[2016-09-20] MEDS ORDERED: CENTRUM PO (05:10)
[2016-09-20] MEDS ORDERED: CLARITIN10 M3 PO (05:11)
[2016-09-20] MEDS ORDERED: BENTYL10 MG PO (05:12)
[2016-09-20] MEDS ORDERED: IMODIUM A-D2 M2 PO (05:12)
[2016-09-20] MEDS ORDERED: ZOFRAN ODT4 M1 PO (05:13)
[2016-09-20] MEDS ORDERED: PHENERGAN25 M1 PO (05:13)
[2016-09-20] MEDS ORDERED: PHENERGAN25 MG/1 M1 IM (05:14)
[2016-09-20] MEDS ORDERED: PHENERGAN12.5 M2 PR (05:15)
[2016-09-20] MEDS ORDERED: DIAZEPAM PR (05:16)
[2016-09-20] MEDS ORDERED: ATIVAN2 M1 PO (05:17)
[2016-09-20] MEDS ORDERED: ACETAMINOPHEN PO (05:18)
[2016-09-20] MEDS ORDERED: [UNRECOGNIZED DRUG - OTHER] PO (05:18)
[2016-09-20] MEDS ORDERED: DESYREL150 M1 PO (05:19)
[2016-09-20] MEDS ORDERED: MILK OF MAGNESIA PO (05:19)
[2016-09-20 06:48] LABS: AMYLASE 11 U/L (0-46); LIPASE 38 U/L (22-51)
[2016-09-20 12:01] LABS: ARTERIAL BLD GAS O2 SATURATION 97.6 % (90.0-100.0); ARTERIAL BLOOD GAS HCO3 25.7 mmol/L; ARTERIAL BLOOD GAS PCO2 35.3 mmHg (35.0-45.0); ARTERIAL BLOOD GAS pH 7.471 (7.350-7.450)
[2016-09-20 12:02] LABS: ARTERIAL BLOOD GAS ALLEN TEST NORMAL; ARTERIAL BLOOD GAS ART SITE RIGHT RADIAL; ARTERIAL BLOOD GAS DELIVERY NASAL CANNULA; ARTERIAL DRAW? YES
[2016-09-20 19:17] LABS: ARTERIAL BLD GAS O2 SATURATION 91.2 % (90.0-100.0); ARTERIAL BLOOD GAS CARBOXY HB 1.1 %sat (0.0-9.0); ARTERIAL BLOOD GAS HCO3 26.3 mmol/L; ARTERIAL BLOOD GAS MET HB 0.5 %sat (0.0-2.0); ARTERIAL BLOOD GAS PCO2 43.4 mmHg (35.0-45.0)
[2016-09-20 19:19] LABS: ARTERIAL BLOOD GAS ALLEN TEST NORMAL; ARTERIAL BLOOD GAS PO2 63.5 mmHg (80.0-100); ARTERIAL DRAW? YES
[2016-09-20 19:20] LABS: ARTERIAL BLOOD GAS ART SITE LEFT RADIAL; ARTERIAL BLOOD GAS DELIVERY NASAL CANNULA
[2016-09-21 05:25] LABS: ARTERIAL BLD GAS O2 SATURATION 93.5 % (90.0-100.0); ARTERIAL BLOOD GAS ALLEN TEST NORMAL; ARTERIAL BLOOD GAS CARBOXY HB 1.4 %sat (0.0-9.0); ARTERIAL BLOOD GAS HCO3 25.3 mmol/L; ARTERIAL BLOOD GAS MET HB 0.7 %sat (0.0-2.0); ARTERIAL BLOOD GAS PCO2 35.7 mmHg (35.0-45.0); ARTERIAL BLOOD GAS PO2 66.6 mmHg (80.0-100); ARTERIAL BLOOD GAS pH 7.459 (7.350-7.450); ARTERIAL DRAW? YES
[2016-09-21 05:26] LABS: ARTERIAL BLOOD GAS ART SITE LEFT RADIAL; ARTERIAL BLOOD GAS DELIVERY NASAL CANNULA
[2016-09-21 06:05] LABS: BASOPHIL% 0.2 % (0-2.5); EOSINOPHIL# 0.2 X10e3 (0-0.7); EOSINOPHIL% 2.5 % (0.0-7.0); HEMATOCRIT 42.5 % (38.0-50.0); HEMOGLOBIN 14.3 gm/dL (13.0-16.0); LYMPHOCYTE% 15.5 % (17.0-45.0); MEAN CELL VOLUME 102.3 FL (83-96); MEAN CORPUSCULAR HEMOGLOBIN 34.5 PG (28-34); MEAN CORPUSCULAR HGB CONC 33.7 g/dL (30-36); MEAN PLATELET VOLUME 9.8 FL (6.5-11.5); MONOCYTE# 0.4 X10e3 (0-1.0); MONOCYTE% 5.7 % (3.0-12.0); NEUTROPHIL% 76.1 % (40-75); RED BLOOD COUNT 4.15 X10e (3.90-5.60); RED CELL DISTRIBUTION WIDTH 14.1 % (11.0-15.5); WHITE BLOOD COUNT 6.5 X10e3 (4.0-10.5)
[2016-09-21 06:56] LABS: ALBUMIN SERUM 3.2 g/dL (3.5-5.0); BILIRUBIN,TOTAL 1.8 mg/dL (0.2-2.0); BUN/CREATININE RATIO 17.5; CALCIUM SERUM 8.1 mg/dL (8.4-10.2); CREATININE SERUM 0.8 mg/dL (0.6-1.4); GLOM FILT RATE Estimated 97.8 mL/min (>60); POTASSIUM 3.1 mmol/L (3.5-5.1); PROTEIN TOTAL SERUM 6.1 g/dL (6.0-8.3)
[2016-09-21 07:06] LABS: DIFF IND YES; PLATELET COUNT 97 X10e3 (140-420)
[2016-09-21 07:16] LABS: PLATELET ESTIMATE DECREASED (NORMAL)
[2016-09-21 07:17] LABS: TEAR DROP CELLS PRESENT
[2016-09-21 22:57] LABS: ARTERIAL BLD GAS O2 SATURATION 93.8 % (90.0-100.0); ARTERIAL BLOOD GAS CARBOXY HB 1.4 %sat (0.0-9.0); ARTERIAL BLOOD GAS PCO2 31.3 mmHg (35.0-45.0); ARTERIAL BLOOD GAS pH 7.494 (7.350-7.450)
[2016-09-21 23:00] LABS: ARTERIAL BLOOD GAS PO2 66.7 mmHg (80.0-100); ARTERIAL DRAW? YES
[2016-09-21 23:01] LABS: ARTERIAL BLOOD GAS ALLEN TEST NORMAL; ARTERIAL BLOOD GAS ART SITE RIGHT BRACHIAL; ARTERIAL BLOOD GAS DELIVERY NASAL CANNULA
[2016-09-22 06:39] LABS: ALBUMIN SERUM 2.9 g/dL (3.5-5.0); BILIRUBIN,TOTAL 2.3 mg/dL (0.2-2.0); BUN/CREATININE RATIO 13.33; CALCIUM SERUM 7.8 mg/dL (8.4-10.2); CREATININE SERUM 0.6 mg/dL (0.6-1.4); GLOM FILT RATE Estimated 110.1 mL/min (>60); MAGNESIUM 1.7 mg/dL (1.6-3.0); PHOSPHOROUS 1.2 mg/dL (2.5-4.6); PROTEIN TOTAL SERUM 5.7 g/dL (6.0-8.3)
[2016-09-22 06:42] LABS: POTASSIUM 2.9 mmol/L (3.5-5.1)
[2016-09-22 10:23] LABS: ARTERIAL BLOOD GAS CARBOXY HB 0.9 %sat (0.0-9.0); ARTERIAL BLOOD GAS HCO3 24.3 mmol/L; ARTERIAL BLOOD GAS MET HB 0.6 %sat (0.0-2.0); ARTERIAL BLOOD GAS PCO2 38.7 mmHg (35.0-45.0); ARTERIAL BLOOD GAS pH 7.405 (7.350-7.450)
[2016-09-22 10:25] LABS: ARTERIAL BLOOD GAS ART SITE LEFT RADIAL; ARTERIAL BLOOD GAS DELIVERY VENT; ARTERIAL BLOOD GAS VENT MODE AC; ARTERIAL DRAW? YES
[2016-09-23 02:27] LABS: BASOPHIL% 0.2 % (0-2.5); DIFF IND NO; EOSINOPHIL# 0.1 X10e3 (0-0.7); EOSINOPHIL% 2.2 % (0.0-7.0); HEMATOCRIT 36.6 % (38.0-50.0); HEMOGLOBIN 12.1 gm/dL (13.0-16.0); LYMPHOCYTE# 1.1 X10e3 (1.0-3.5); LYMPHOCYTE% 16.9 % (17.0-45.0); MEAN CELL VOLUME 104.2 FL (83-96); MEAN CORPUSCULAR HEMOGLOBIN 34.4 PG (28-34); MEAN PLATELET VOLUME 9.4 FL (6.5-11.5); MONOCYTE% 15.3 % (3.0-12.0); NEUTROPHIL# 4.1 X10e3 (1.5-7.1); NEUTROPHIL% 65.4 % (40-75); PLATELET COUNT 105 X10e3 (140-420); RED BLOOD COUNT 3.52 X10e (3.90-5.60); RED CELL DISTRIBUTION WIDTH 14.6 % (11.0-15.5); WHITE BLOOD COUNT 6.3 X10e3 (4.0-10.5)
[2016-09-23 03:21] LABS: BUN/CREATININE RATIO 9.37; CALCIUM SERUM 7.2 mg/dL (8.4-10.2); CREATININE SERUM 1.6 mg/dL (0.6-1.4); GLOM FILT RATE Estimated 46.5 mL/min (>60); MAGNESIUM 2.1 mg/dL (1.6-3.0); PHOSPHOROUS 2.5 mg/dL (2.5-4.6); POTASSIUM 3.2 mmol/L (3.5-5.1)
[2016-09-23 04:59] LABS: ARTERIAL BLD GAS O2 SATURATION 96.7 % (90.0-100.0); ARTERIAL BLOOD GAS CARBOXY HB 0.9 %sat (0.0-9.0); ARTERIAL BLOOD GAS HCO3 22.4 mmol/L; ARTERIAL BLOOD GAS MET HB 1.3 %sat (0.0-2.0); ARTERIAL BLOOD GAS PCO2 40.3 mmHg (35.0-45.0); ARTERIAL BLOOD GAS pH 7.354 (7.350-7.450)
[2016-09-23 05:04] LABS: ARTERIAL BLOOD GAS ALLEN TEST NORMAL; ARTERIAL BLOOD GAS ART SITE RIGHT RADIAL; ARTERIAL BLOOD GAS VENT MODE AC; ARTERIAL DRAW? YES
[2016-09-23 16:26] LABS: BUN/CREATININE RATIO 8.88; CALCIUM SERUM 7.7 mg/dL (8.4-10.2); CREATININE SERUM 1.8 mg/dL (0.6-1.4); GLOM FILT RATE Estimated 40.3 mL/min (>60); POTASSIUM 3.4 mmol/L (3.5-5.1)
[2016-09-24 03:27] LABS: BASOPHIL% 0.2 % (0-2.5); EOSINOPHIL# 0.2 X10e3 (0-0.7); EOSINOPHIL% 3.7 % (0.0-7.0); HEMATOCRIT 36.2 % (38.0-50.0); HEMOGLOBIN 11.9 gm/dL (13.0-16.0); LYMPHOCYTE# 0.9 X10e3 (1.0-3.5); LYMPHOCYTE% 18.7 % (17.0-45.0); MEAN CORPUSCULAR HEMOGLOBIN 34.5 PG (28-34); MEAN CORPUSCULAR HGB CONC 32.9 g/dL (30-36); MONOCYTE% 20.9 % (3.0-12.0); NEUTROPHIL# 2.8 X10e3 (1.5-7.1); NEUTROPHIL% 56.5 % (40-75); PLATELET COUNT 131 X10e3 (140-420); RED BLOOD COUNT 3.45 X10e (3.90-5.60); RED CELL DISTRIBUTION WIDTH 14.6 % (11.0-15.5); WHITE BLOOD COUNT 4.9 X10e3 (4.0-10.5)
[2016-09-24 03:28] LABS: DIFF IND YES
[2016-09-24 03:44] LABS: PLATELET ESTIMATE DECREASED (NORMAL)
[2016-09-24 04:13] LABS: BUN/CREATININE RATIO 8.5; CALCIUM SERUM 7.9 mg/dL (8.4-10.2); GLOM FILT RATE Estimated 35.5 mL/min (>60); PHOSPHOROUS 3.3 mg/dL (2.5-4.6); POTASSIUM 3.8 mmol/L (3.5-5.1)
[2016-09-24 13:12] LABS: URINE APPEARANCE CLEAR; URINE BILIRUBIN NEG (NEG); URINE BLOOD 1+ (NEG); URINE COLOR YELLOW; URINE GLUCOSE NEG (NEG); URINE KETONE NEG (NEG); URINE LEUKOCYTE ESTERASE NEG (NEG); URINE NITRATE NEG (NEG); URINE PROTEIN NEG (NEG); URINE SPECIFIC GRAVITY 1.009 (1.003-1.035); URINE UROBILINOGEN 0.2 MG/DL (NEG)
[2016-09-24 13:13] LABS: U HYALINE CASTS AUWI 0-2 /[LPF]; URINE BACTERIA AUWI NEG (NEGATIVE); URINE SQUAMOUS EPITHELIAL CELL NONE SEEN /[HPF]; UWBCS1 AUWI 0-2 (0-5)
[2016-09-24 13:36] LABS: CREATININE,RANDOM URINE 40 mg/dL; SODIUM URINE RANDOM 144 mmol/L
[2016-09-25 05:41] LABS: HEMATOCRIT 35.6 % (38.0-50.0); HEMOGLOBIN 11.9 gm/dL (13.0-16.0); MEAN CELL VOLUME 102.7 FL (83-96); MEAN CORPUSCULAR HEMOGLOBIN 34.2 PG (28-34); MEAN CORPUSCULAR HGB CONC 33.3 g/dL (30-36); MEAN PLATELET VOLUME 9.4 FL (6.5-11.5); RED BLOOD COUNT 3.47 X10e (3.90-5.60); RED CELL DISTRIBUTION WIDTH 14.3 % (11.0-15.5); WHITE BLOOD COUNT 5.1 X10e3 (4.0-10.5)
[2016-09-25 06:40] LABS: ALBUMIN SERUM 2.6 g/dL (3.5-5.0); BILIRUBIN,TOTAL 1.3 mg/dL (0.2-2.0); BUN/CREATININE RATIO 8.66; CALCIUM SERUM 8.5 mg/dL (8.4-10.2); CREATININE SERUM 1.5 mg/dL (0.6-1.4); GLOM FILT RATE Estimated 50.3 mL/min (>60); MAGNESIUM 1.9 mg/dL (1.6-3.0); PHOSPHOROUS 3.4 mg/dL (2.5-4.6); POTASSIUM 3.3 mmol/L (3.5-5.1); PROTEIN TOTAL SERUM 6.4 g/dL (6.0-8.3)
[2016-09-26 04:43] LABS: ALBUMIN SERUM 2.9 g/dL (3.5-5.0); BILIRUBIN,TOTAL 1.5 mg/dL (0.2-2.0); CALCIUM SERUM 8.7 mg/dL (8.4-10.2); CREATININE SERUM 1.5 mg/dL (0.6-1.4); GLOM FILT RATE Estimated 50.3 mL/min (>60); MAGNESIUM 2.4 mg/dL (1.6-3.0); PHOSPHOROUS 2.5 mg/dL (2.5-4.6); POTASSIUM 3.4 mmol/L (3.5-5.1); PROTEIN TOTAL SERUM 6.7 g/dL (6.0-8.3)
[2016-09-26 06:23] LABS: BASOPHIL% 0.5 % (0-2.5); EOSINOPHIL# 0.3 X10e3 (0-0.7); HEMATOCRIT 36.7 % (38.0-50.0); HEMOGLOBIN 12.1 gm/dL (13.0-16.0); LYMPHOCYTE% 18.9 % (17.0-45.0); MEAN CELL VOLUME 102.6 FL (83-96); MEAN CORPUSCULAR HEMOGLOBIN 33.7 PG (28-34); MEAN CORPUSCULAR HGB CONC 32.9 g/dL (30-36); MEAN PLATELET VOLUME 10.1 FL (6.5-11.5); MONOCYTE% 19.3 % (3.0-12.0); NEUTROPHIL# 2.9 X10e3 (1.5-7.1); NEUTROPHIL% 56.3 % (40-75); PLATELET COUNT 169 X10e3 (140-420); RED BLOOD COUNT 3.58 X10e (3.90-5.60); RED CELL DISTRIBUTION WIDTH 13.9 % (11.0-15.5); WHITE BLOOD COUNT 5.1 X10e3 (4.0-10.5)
[2016-09-26 06:28] LABS: DIFF IND NO
[2016-09-26 07:17] LABS: ALBUMIN SERUM 2.8 g/dL (3.5-5.0); BILIRUBIN,TOTAL 1.4 mg/dL (0.2-2.0); BUN/CREATININE RATIO 13.07; CALCIUM SERUM 8.8 mg/dL (8.4-10.2); CREATININE SERUM 1.3 mg/dL (0.6-1.4); GLOM FILT RATE Estimated 59.7 mL/min (>60); MAGNESIUM 2.4 mg/dL (1.6-3.0); PHOSPHOROUS 2.4 mg/dL (2.5-4.6); POTASSIUM 3.4 mmol/L (3.5-5.1); PROTEIN TOTAL SERUM 6.6 g/dL (6.0-8.3)
[2016-09-27 09:10] LABS: HEMATOCRIT 36.1 % (38.0-50.0); MEAN CELL VOLUME 102.8 FL (83-96); MEAN CORPUSCULAR HEMOGLOBIN 34.1 PG (28-34); MEAN CORPUSCULAR HGB CONC 33.2 g/dL (30-36); MEAN PLATELET VOLUME 10.5 FL (6.5-11.5); RED BLOOD COUNT 3.52 X10e (3.90-5.60); RED CELL DISTRIBUTION WIDTH 14.1 % (11.0-15.5); WHITE BLOOD COUNT 6.4 X10e3 (4.0-10.5)
[2016-09-27 09:43] LABS: BUN/CREATININE RATIO 12.14; CALCIUM SERUM 8.4 mg/dL (8.4-10.2); CREATININE SERUM 1.4 mg/dL (0.6-1.4); GLOM FILT RATE Estimated 54.6 mL/min (>60); MAGNESIUM 2.3 mg/dL (1.6-3.0); PHOSPHOROUS 3.7 mg/dL (2.5-4.6); POTASSIUM 3.8 mmol/L (3.5-5.1)
[2016-09-28 05:42] LABS: HEMATOCRIT 37.5 % (38.0-50.0); HEMOGLOBIN 12.5 gm/dL (13.0-16.0); MEAN CELL VOLUME 101.5 FL (83-96); MEAN CORPUSCULAR HEMOGLOBIN 33.8 PG (28-34); MEAN CORPUSCULAR HGB CONC 33.3 g/dL (30-36); MEAN PLATELET VOLUME 10.2 FL (6.5-11.5); RED BLOOD COUNT 3.7 X10e (3.90-5.60); RED CELL DISTRIBUTION WIDTH 14.4 % (11.0-15.5); WHITE BLOOD COUNT 8.1 X10e3 (4.0-10.5)
[2016-09-28 07:06] LABS: CALCIUM SERUM 8.4 mg/dL (8.4-10.2); CREATININE SERUM 1.5 mg/dL (0.6-1.4); GLOM FILT RATE Estimated 50.3 mL/min (>60); POTASSIUM 3.8 mmol/L (3.5-5.1)
[2016-09-29 05:26] LABS: HEMATOCRIT 35.2 % (38.0-50.0); HEMOGLOBIN 11.5 gm/dL (13.0-16.0); MEAN CELL VOLUME 103.2 FL (83-96); MEAN CORPUSCULAR HEMOGLOBIN 33.7 PG (28-34); MEAN CORPUSCULAR HGB CONC 32.6 g/dL (30-36); MEAN PLATELET VOLUME 10.7 FL (6.5-11.5); RED BLOOD COUNT 3.41 X10e (3.90-5.60); RED CELL DISTRIBUTION WIDTH 14.1 % (11.0-15.5); WHITE BLOOD COUNT 6.9 X10e3 (4.0-10.5)
[2016-09-29 05:40] LABS: INR 1.1; PARTIAL THROMBOPLASTIN TIME 25.2 SECONDS (23.5-31.3); PROTHROMBIN TIME (PATIENT) 11.3 SECONDS (9.6-11.5)
[2016-09-29 05:53] LABS: BUN/CREATININE RATIO 8.75; CALCIUM SERUM 8.1 mg/dL (8.4-10.2); CREATININE SERUM 1.6 mg/dL (0.6-1.4); GLOM FILT RATE Estimated 46.5 mL/min (>60); POTASSIUM 3.6 mmol/L (3.5-5.1)
[2016-09-29 15:48] LABS: URINE SOURCE CLEAN CATCH
[2016-09-29 15:56] LABS: URINE APPEARANCE CLEAR; URINE BILIRUBIN NEG (NEG); URINE BLOOD TRACE (NEG); URINE COLOR YELLOW; URINE GLUCOSE NEG (NEG); URINE KETONE NEG (NEG); URINE LEUKOCYTE ESTERASE NEG (NEG); URINE NITRATE NEG (NEG); URINE PROTEIN NEG (NEG); URINE SPECIFIC GRAVITY 1.014 (1.003-1.035); URINE UROBILINOGEN 0.2 MG/DL (NEG)
[2016-09-29 15:58] LABS: URINE BACTERIA AUWI NEG (NEGATIVE); URINE SQUAMOUS EPITHELIAL CELL NONE SEEN /[HPF]; UWBCS1 AUWI 0-2 (0-5)
[2016-09-29 22:03] LABS: ANGIO %MB 3.2 % (0.0-4.0); ANGIO MB 4.8 ng/ml
[2016-09-30 01:36] LABS: HEMATOCRIT 34.2 % (38.0-50.0); HEMOGLOBIN 11.2 gm/dL (13.0-16.0); MEAN CELL VOLUME 103.3 FL (83-96); MEAN CORPUSCULAR HEMOGLOBIN 33.9 PG (28-34); MEAN CORPUSCULAR HGB CONC 32.8 g/dL (30-36); MEAN PLATELET VOLUME 10.7 FL (6.5-11.5); RED BLOOD COUNT 3.31 X10e (3.90-5.60); RED CELL DISTRIBUTION WIDTH 13.8 % (11.0-15.5); WHITE BLOOD COUNT 7.4 X10e3 (4.0-10.5)
[2016-09-30 02:15] LABS: CALCIUM SERUM 8.3 mg/dL (8.4-10.2); CREATININE SERUM 1.4 mg/dL (0.6-1.4); GLOM FILT RATE Estimated 54.6 mL/min (>60); POTASSIUM 4.3 mmol/L (3.5-5.1)
[2016-09-30 02:16] LABS: ANGIO %MB 3.1 % (0.0-4.0); ANGIO MB 4.3 ng/ml
[2016-09-30] MEDS ORDERED: LOPRESSOR PO (17:52)
[2016-09-30] MEDS ORDERED: LIPITOR80 MG PO (17:54)
[2016-09-30] MEDS ORDERED: CHEWABLE ASPIRI81 MG PO (17:55)
[2016-09-30] MEDS ORDERED: PLAVIX PO (17:57)
[2016-09-30] MEDS ORDERED: NITROSTAT0.4 MG SL (17:58)
[2016-09-30] MEDS ORDERED: CLONIDINE PO (18:18)
== END 2016-09-30 21:48 | disposition home or self-care (01) | DRG 981 ==
LOC: CED 01:27 → CEDOF 07:23 → CICCU2 12:08 → C3A PCU 09-25 18:39 → C5C 09-29 16:40
PROVIDERS: Internal Medicine; Internal Medicine Cardiovascular Disease; Internal Medicine Nephrology; Internal Medicine Pulmonary Disease; Nurse Practitioner
PROC: 5A1945Z Respiratory Ventilation, 24-96 Consecutive Hours (ICD-10-PCS; principal; 2016-09-22)
PROC: 0BH18EZ Insertion of Endotracheal Airway into Trachea, Via Natural or Artificial Opening Endoscopic (ICD-10-PCS; 2016-09-22)
PROC: 05HM33Z Insertion of Infusion Device into Right Internal Jugular Vein, Percutaneous Approach (ICD-10-PCS; 2016-09-22)
PROC: B543ZZA Ultrasonography of Right Jugular Veins, Guidance (ICD-10-PCS; 2016-09-22)
PROC: B246ZZZ Ultrasonography of Right and Left Heart (ICD-10-PCS; 2016-09-26)
PROC: 027034Z Dilation of Coronary Artery, One Artery with Drug-eluting Intraluminal Device, Percutaneous Approach (ICD-10-PCS; 2016-09-29)
PROC: 4A023N7 Measurement of Cardiac Sampling and Pressure, Left Heart, Percutaneous Approach (ICD-10-PCS; 2016-09-29)
PROC: B211YZZ Fluoroscopy of Multiple Coronary Arteries using Other Contrast (ICD-10-PCS; 2016-09-29)
PROC: B215YZZ Fluoroscopy of Left Heart using Other Contrast (ICD-10-PCS; 2016-09-29)
DX: F10.231 Alcohol dependence with withdrawal delirium (principal); J69.0 Pneumonitis due to inhalation of food and vomit; J96.01 Acute respiratory failure with hypoxia; N17.0 Acute kidney failure with tubular necrosis; I47.2 Ventricular tachycardia; G92 Toxic encephalopathy; K92.2 Gastrointestinal hemorrhage, unspecified; E87.0 Hyperosmolality and hypernatremia; T83.83XA Hemorrhage due to genitourinary prosthetic devices, implants and grafts, initial encounter; E44.1 Mild protein-calorie malnutrition; J44.0 Chronic obstructive pulmonary disease with (acute) lower respiratory infection; F17.210 Nicotine dependence, cigarettes, uncomplicated; B95.61 Methicillin susceptible Staphylococcus aureus infection as the cause of diseases classified elsewhere; B96.89 Other specified bacterial agents as the cause of diseases classified elsewhere; R31.9 Hematuria, unspecified; Y73.1 Therapeutic (nonsurgical) and rehabilitative gastroenterology and urology devices associated with adverse incidents; I12.9 Hypertensive chronic kidney disease with stage 1 through stage 4 chronic kidney disease, or unspecified chronic kidney disease; N18.3 Chronic kidney disease, stage 3 (moderate); E83.39 Other disorders of phosphorus metabolism; E87.6 Hypokalemia; E83.51 Hypocalcemia; Z68.34 Body mass index [BMI] 34.0-34.9, adult; E66.01 Morbid (severe) obesity due to excess calories; I25.10 Atherosclerotic heart disease of native coronary artery without angina pectoris; F39 Unspecified mood [affective] disorder
CPT/HCPCS: 36415; 36600; 70450; 71010; 74000; 76770; 78452; 80048; 80053; 80061; 80076; 80202; 80307; 81003; 82140; 82150; 82274; 82550; 82553; 82570; 82803; 82947; 83690; 83735; 83880; 84100; 84132; 84300; 84443; 84484; 85025; 85027; 85049; 85347; 85610; 85730; 87040; 87070; 87077; 87186; 87205; 89190; 93005; 93017; 93306; 94002; 94003; 94640; 94760; 96360; 96372; 99285; A9500; C1725; C1769; C1874; C1887; C1894; C9113; G0238; G0480; J0330; J0360; J0461; J0515; J0690; J0696; J1327; J1630; J1644; J1650; J2060; J2250; J2543; J2785; J3010; J3260; J3370; J3411; J3475; J3480; J3486; J7042; J7060